=== PATIENT | female | born 1935 | race Caucasian/White ===

== ENCOUNTER → 2018-01-20 | Outpatient (CLI) | payer MEDICARE ==
--- NOTE | 2018-01-20 14:54 | XR ---
EXAMINATION TYPE: XR wrist complete 4 views LT, XR hand complete 3 views LT DATE OF EXAM: 01/20/2018 COMPARISON: NONE HISTORY: 81-year-old female pain after fall in July FINDINGS: There is widening of the scapholunate interval at 4.2 mm. Joint space narrowing with subchondral scle rosis at the radioscaphoid joint. The distal radioulnar joint is intact. Moderate degenerative joint space narrowing and marginal spurring at the first CMC joint. Osteopenia. Degenerative spurring scattered within the DIP and PIP joints especially the third PIP jaye int. No acute fracture or dislocation. IMPRESSION (wrist and hand): 1. Scapholunate ligament rupture with SLAC wrist. 2. 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 3. Additional scattered osteoarthritic changes within the fingers.
== END | disposition home or self-care (01) ==
LOC: RADXRMAIN 14:15
PROVIDERS: ATTEND Family Medicine
DX: M25.532 Pain in left wrist (principal)

== ENCOUNTER 2020-06-13 12:15 | Inpatient (IN) | payer MEDICARE ==
[2020-06-13] MEDS ORDERED: SODIUM CHLORIDE 0.9% 1,000 ML IV ONE (12:22)
[2020-06-13] MEDS ORDERED: KETOROLAC 15 MG/ML 1 ML VIAL IVP STA (12:23)
[2020-06-13 12:50] LABS: Glucose,Whole Blood 194 mg/dL (75-99)
--- NOTE | 2020-06-13 12:54 | ED ---
General Adult HPI - General Stated complaint: Back Pain Time Seen by Provider: 06/13/20 12:15 Source: patient, EMS, RN notes reviewed, old records reviewed Mode of arrival: EMS Limitations: no limitations - History of Present Illness Initial comments: This is an 84-year-old female who presents emergency department complaining of lower back pain. Patient states she fell 2 weeks ago and claims that she went to [facility] emergency department however when I called her they stated that she had never been there for lower back pain 2 weeks ago. Patient states her back pain is so bad now that she can't get out of bed and go to the bathroom and she is just swelling herself in bed. Family states he is so weak they can no longer take care of her and they are preparing to place her in an assisted living. Patient denies any fever chills or cough per patient denies any lighthe adedness or dizziness. Patient denies any chest pain palpitations difficulty breathing shortness of breath. Patient denies any abdominal pain patient denies nausea vomiting diarrhea. Patient denies any hip pain. Patient denies any extremity pain. Patient's only complaint is lower back pain and weakness. - Related Data Home Medications Medication Instructions Recorded Confirmed Atorvastatin [Lipitor] 40 mg PO DAILY 06/13/20 06/13/20 Carvedilol [Coreg] 12.5 mg PO BID 06/13/20 06/13/20 Lidocaine 5% Patch [Lidoderm] 1 patch TOPICAL DAILY 06/13/20 06/13/20 Losartan Potassium 100 mg PO DAILY 06/13/20 06/13/20 traMADol HCL 50 mg PO Q12H PRN 06/13/20 06/13/20 Allergies Allergy/AdvReac Type Severity Reaction Status Date / Time Sulfa (Sulfonamide Allergy Anaphylaxis Verified 04/25/15 19:07 Antibiotics) Review of Systems ROS Statement: Those systems with pertinent positive or pertinent negative responses have been documented in the HPI. ROS Other: All systems not noted in ROS Statement are negative. Past Medical History Past Medical History: Diabetes Mellitus, Hypertension Additional Past Medical History / Comment(s): DM in past no longer needs to take medication History of Any Multi-Drug Resistant Organisms: None Reported Past Surgical History: Section, Orthopedic Surgery Additional Past Surgical History / Comment(s): Left wrist Fx Past Anesthesia/Blood Transfusion Reactions: No Reported Reaction Past Psychological History: Anxiety Smoking Status: Former smoker Past Alcohol Use History: None Reported Past Drug Use History: None Reported General Exam - General Exam Comments Initial Comments: GENERAL: Patient is well-developed and well-nourished. Patient is nontoxic and well-hydrated and is in mild distress. ENT: Neck is soft and supple. No significant lymphadenopathy is noted. Oropharynx is clear. Moist mucous membranes. Neck has full range of motion without eliciting any pain. EYES: The sclera were anicteric and conjunctiva were pink and moist. Extraocular movements were intact and pupils were equal round and reactive to light. Eyelids were unremarkable. PULMONARY: Unlabored respirations. Good breath sounds bilaterally. No audible rales rhonchi or wheezing was noted. CARDIOVASCULAR: There is a regular rate and rhythm without any murmurs gallops or rubs. ABDOMEN: Soft and nontender with normal bowel sounds. SKIN: Skin is clear with no lesions or rashes and otherwise unremarkable. NEUROLOGIC: Patient is alert and oriented x3. Cranial nerves II through XII are grossly intact. Motor and sensory are also intact. Normal speech, volume and content. Symmetrical smile. MUSCULOSKELETAL: Normal extremities with adequate strength and full range of motion. Patient has tenderness of the lumbar spine around L3 as well as sacroiliac area. LYMPHATICS: No significant lymphadenopathy is noted PSYCHIATRIC: Normal psychiatric evaluation. Limitations: no limitations Course Vital Signs 06/13/20 06/13/20 06/13/20 12:18 13:33 14:00 Temperature 97.2 F L Pulse Rate 83 73 73 Respiratory 18 16 16 Rate Blood Pressure 110/62 100/57 119/82 O2 Sat by Pulse 95 95 95 Oximetry 06/13/20 15:00 Temperature Pulse Rate 71 Respiratory 16 Rate Blood Pressure 135/76 O2 Sat by Pulse 95 Oximetry Medical Decision Making - Medical Decision Making EKG shows sinus rhythm at 74 bpm. ME interval is 180 QRS is 148 QTC intervals 456 QTC is 506. Patient was diagnosed with pneumonia at 2:20 PM patient was started on antibiotics blood cultures are drawn and lactic acid was drawn. X-ray of the pelvis showed no acute abnormality. Lumbar sickle spine showed a T12 compression fracture that appears old. CT of the lumbosacral spine showed no acute fracture of the spine however it did show a possible pneumonia versus neoplasm in left lung. I spoke with Dr. Green he agreed to admit the patient admitted the patient wrote admitting orders. - Lab Data Result diagrams: 06/13/20 12:52 06/13/20 12:52 Lab Results 06/13/20 06/13/20 06/13/20 Range/Units 12:39 12:52 12:52 WBC 12.6 H (3.8-10.6) k/uL RBC 4.18 (3.80-5.40) m/uL Hgb 13.7 (11.4-16.0) gm/dL Hct 40.4 (34.0-46.0) % MCV 96.7 (80.0-100.0) fL MCH 32.7 (25.0-35.0) pg MCHC 33.8 (31.0-37.0) g/dL RDW 13.0 (11.5-15.5) % Plt Count 206 (150-450) k/uL MPV 7.1 Neutrophils % 82 % Lymphocytes % 12 % Monocytes % 5 % Eosinophils % 1 % Basophils % 0 % Neutrophils # 10.3 H (1.3-7.7) k/uL Lymphocytes # 1.5 (1.0-4.8) k/uL Monocytes # 0.6 (0-1.0) k/uL Eosinophils # 0.2 (0-0.7) k/uL Basophils # 0.0 (0-0.2) k/uL Sodium (137-145) mmol/L Potassium (3.5-5.1) mmol/L Chloride (98-107) mmol/L Carbon Dioxide (22-30) mmol/L Anion Gap mmol/L BUN (7-17) mg/dL Creatinine (0.52-1.04) mg/dL Est GFR (CKD-EPI)AfAm (>60 ml/min/1.73 sqM) Est GFR (CKD-EPI)NonAf (>60 ml/min/1.73 sqM) Glucose (74-99) mg/dL POC Glucose (mg/dL) 194 H (75-99) mg/dL POC Glu Crayon Grader ID Brandan Arrieta Calcium (8.4-10.2) mg/dL Total Bilirubin (0.2-1.3) mg/dL AST (14-36) U/L ALT (4-34) U/L Alkaline Phosphatase (38-126) U/L Total Protein (6.3-8.2) g/dL Albumin (3.5-5.0) g/dL Urine Color Yellow Urine Appearance Clear (Clear) Urine pH 6.0 (5.0-8.0) Ur Specific Mobile 1.021 (1.001-1.035) Urine Protein Trace H (Negative) Urine Glucose (UA) 1+ H (Negative) Urine Ketones 1+ H (Negative) Urine Blood Negative (Negative) Urine Nitrite Negative (Negative) Urine Bilirubin Negative (Negative) Urine Urobilinogen <2.0 (<2.0) mg/dL Ur Leukocyte Esterase Negative (Negative) 06/13/20 Range/Units 12:52 WBC (3.8-10.6) k/uL RBC (3.80-5.40) m/uL Hgb (11.4-16.0) gm/dL Hct (34.0-46.0) % MCV (80.0-100.0) fL MCH (25.0-35.0) pg MCHC (31.0-37.0) g/dL RDW (11.5-15.5) % Plt Count (150-450) k/uL MPV Neutrophils % % Lymphocytes % % Monocytes % % Eosinophils % % Basophils % % Neutrophils # (1.3-7.7) k/uL Lymphocytes # (1.0-4.8) k/uL Monocytes # (0-1.0) k/uL Eosinophils # (0-0.7) k/uL Basophils # (0-0.2) k/uL Sodium 132 L (137-145) mmol/L Potassium 3.9 (3.5-5.1) mmol/L Chloride 99 (98-107) mmol/L Carbon Dioxide 28 (22-30) mmol/L Anion Gap 5 mmol/L BUN 32 H (7-17) mg/dL Creatinine 0.77 (0.52-1.04) mg/dL Est GFR (CKD-EPI)AfAm 81 (>60 ml/min/1.73 sqM) Est GFR (CKD-EPI)NonAf 71 (>60 ml/min/1.73 sqM) Glucose 203 H (74-99) mg/dL POC Glucose (mg/dL) (75-99) mg/dL POC Glu Crayon Grader ID Calcium 9.0 (8.4-10.2) mg/dL Total Bilirubin 1.5 H (0.2-1.3) mg/dL AST 38 H (14-36) U/L ALT 32 (4-34) U/L Alkaline Phosphatase 96 (38-126) U/L Total Protein 6.5 (6.3-8.2) g/dL Albumin 3.4 L (3.5-5.0) g/dL Urine Color Urine Appearance (Clear) Urine pH (5.0-8.0) Ur Specific Mobile (1.001-1.035) Urine Protein (Negative) Urine Glucose (UA) (Negative) Urine Ketones (Negative) Urine Blood (Negative) Urine Nitrite (Negative) Urine Bilirubin (Negative) Urine Urobilinogen (<2.0) mg/dL Ur Leukocyte Esterase (Negative) Disposition Clinical Impression: Thoracic back pain, Pneumonia Disposition: ADMITTED IP TO THIS HOSP Referrals: William Green MD [Primary Care Provider] - 1-2 days Time of Disposition: 15:08
[2020-06-13 13:02] LABS: Basophils % (A) 0 %; Eosinophils # (A) 0.2 k/uL (0-0.7); Eosinophils % (A) 1 %; HCT 40.4 % (34.0-46.0); HGB 13.7 gm/dL (11.4-16.0); Lymphocytes # (A) 1.5 k/uL (1.0-4.8); Lymphocytes % (A) 12 %; MCH 32.7 pg (25.0-35.0); MCHC 33.8 g/dL (31.0-37.0); MCV 96.7 fL (80.0-100.0); Mean Platelet Volume 7.1; Monocytes # (A) 0.6 k/uL (0-1.0); Monocytes % (A) 5 %; Neutrophils # (A) 10.3 k/uL (1.3-7.7); Neutrophils % (A) 82 %; Platelet Count 206 k/uL (150-450); RBC 4.18 m/uL (3.80-5.40); WBC 12.6 k/uL (3.8-10.6)
[2020-06-13 13:03] LABS: Appearance,Urine Clear (Clear); Bilirubin,Urine Negative (Negative); Blood,Urine Negative (Negative); Color,Urine Yellow; Glucose,Urine (UA) 1+ (Negative); Ketones,Urine 1+ (Negative); Leukocyte Esterase,Urine Negative (Negative); Nitrite,Urine Negative (Negative); Protein,Urine Trace (Negative); Specific Gravity,Urine 1.021 (1.001-1.035); Urobilinogen,Urine <2.0 mg/dL (<2.0)
--- NOTE | 2020-06-13 13:12 | XR ---
EXAMINATION TYPE: XR pelvis AP view DATE OF EXAM: 06/13/2020 CLINICAL HISTORY: Pelvic pain after trauma. TECHNIQUE: A single AP view of the pelvis is obtained. COMPARISON: None. FINDINGS: There is no acute fracture/dislocation evident in the pelvis. [id number] axial joint space loss both hips right greater than left with mild acetabular spurring. Some asymmetric narrowin g of left sacroiliac joint is felt present. Pubic symphysis is maintained. Overlying vascular calcifi cation is present. IMPRESSION: There is no acute fracture or dislocation in the pelvis.
--- NOTE | 2020-06-13 13:14 | XR ---
EXAMINATION TYPE: XR lumbar spine 2 or 3V DATE OF EXAM: 06/13/2020 CLINICAL HISTORY: Low back pain. TECHNIQUE: Frontal and lateral images of the lumbar spine are obtained. COMPARISON: None FINDINGS: Osseous structures are demineralized which is noted to lower radiographic sensitivity. The re are 5 lumbar type vertebral bodies identified. The lumbar spine shows satisfactory alignment with out evidence of acute fracture or dislocation. Mild to moderate height loss involving T12 vertebra pr esumed chronic. Vertebral bodies and disc space heights relatively well maintained in the lumbar spin e. Atherosclerotic change of aorta extends into the iliac branch vessels. Facet arthropathy lower lum bar spine is present. Focal ectasia up to 2.9 cm AP diameter distal abdominal aorta noted. IMPRESSION: As above.
[2020-06-13 13:18] LABS: Albumin 3.4 g/dL (3.5-5.0); Potassium 3.9 mmol/L (3.5-5.1); Total Bilirubin 1.5 mg/dL (0.2-1.3); Total Protein 6.5 g/dL (6.3-8.2)
--- NOTE | 2020-06-13 14:25 | CT ---
EXAMINATION TYPE: CT thoracic spine wo con DATE OF EXAM: 06/13/2020 COMPARISON: Lumbar spine x-ray earlier today. HISTORY: Back pain from fall CT DLP: 628.1 mGycm Automated exposure control for dose reduction was used. FINDINGS: Osseous structures redemonstrated demineralized. There is exaggerated thoracic kyphosis. Mild height loss involving T12 vertebra redemonstrated. There is additional mild to moderate height loss involvin g the T10 and T8 vertebra and mild height loss involving the T7 vertebra. No linear lucency to confir m acute fracture is clearly identified at any level. Mild posterior retropulsion involving superior T 12 vertebral sagittal image 32 measuring under 3 mm. There is additional posterior spur efface the an terior thecal sac at T7-T8 level sagittal image 32. There is bilateral moderate underlying emphysematous change. Reticulonodular infiltrates posterior ri ght upper lung axial image 29 are noted. There is additional more prominent nodular consolidations in the posterior aspect left upper lobe. For reference of 1.3 x 1.2 cm area noted axial image 27. Corre late clinically for acute infectious process otherwise neoplasm needs to be considered. There is cardiomegaly with dual lead pacemaker. There is severe coronary artery calcification. There is aneurysmal and atherosclerotic descending thoracic aorta measuring up to 3.8 cm in size axial imag e 55. There is nonspecific low dense left greater than right and size adrenal masses. For reference there i s 2.3 x 1.4 cm left adrenal mass axial image 83 with Hounsfield units averaging 17. IMPRESSION: 1. No acute fracture is clearly evident. Demineralization with several mild/moderate compression type fracture deformities in the mid to lower thoracic spine confirmed. 2. Moderate atherosclerotic change with multifocal aneurysmal descending aorta. 3. Suspicious nodular opacities posterior aspect left greater than right upper lobes, correlate for a cute infectious process, neoplasm cannot be excluded particularly left upper lobe. Follow-up is advis ed. Background moderate underlying emphysematous change. Nonspecific adrenal masses noted.
[2020-06-13] MEDS ORDERED: cefTRIAXone IN SWFI 1,000 MG/10 ML SYRINGE IVP STA (14:39)
[2020-06-13] MEDS ORDERED: PNEUMONIA PROTOCOL UTILIZED 1 EACH MISC PO PRN (15:09)
[2020-06-13] MEDS ORDERED: AZITHROMYCIN 500 MG in SODIUM CHLORIDE 0.9% 250 ML IVPB STA (15:09)
--- NOTE | 2020-06-14 07:59 | XR ---
EXAMINATION TYPE: XR chest 1V DATE OF EXAM: 06/14/2020 COMPARISON: 04/25/2015 INDICATION: Pneumonia TECHNIQUE: Single frontal view of the chest is obtained. FINDINGS: The heart size is mildly prominent. The pulmonary vasculature is normal. No focal consolidation is evident. No suspicious infiltrates. Pacemaker overlies left chest. Chronic rotator cuff tear changes appear to be present at the shoulders bilaterally. IMPRESSION: 1. No acute pulmonary process. 2. Mild cardiomegaly
[2020-06-14] MEDS: AZITHROMYCIN 500 MG TAB PO SCH (10:43)
[2020-06-14] MEDS ORDERED: traMADol 50 MG TAB PO PRN (14:30)
[2020-06-14] MEDS ORDERED: RX INFO: IV CONTRAST WAS GIVEN 1 EACH MISC MISCELLANE PRN (14:36)
[2020-06-14] MEDS: LIDOCAINE 5% PATCH TOPICAL SCH (15:26)
[2020-06-14] MEDS: carvediloL 12.5 MG TAB PO SCH (15:28)
[2020-06-14] MEDS: LOSARTAN 50 MG TAB PO SCH (15:30)
--- NOTE | 2020-06-14 15:32 | HP ---
HISTORY AND PHYSICAL The patient was unable to get out of bed at home with dementia, delirium, low back pain after she had multiple thoracic fractures in the past for which she was admitted. She can no longer take care of herself. They are trying to get her into assisted living. Denies having any chest pain, palpitations, difficulty breathing, nausea, vomiting, generalized weakness, unable to ambulate. HOME MEDICINES: 1. Lipitor 40 daily. 2. Coreg 12.5 b.i.d. 3. Lidocaine patch daily. 4. Losartan 100 daily. 5. Tramadol 50 q.12. ALLERGIES: SULFA. REVIEW OF SYSTEMS: Fourteen-point review of systems otherwise generalized weakness and fatigue. Otherwise negative x14. PAST MEDICAL HISTORY: Diabetes mellitus, hypertension. PAST SURGICAL HISTORY: , orthopedic surgery. PHYSICAL EXAMINATION: She is well-developed, well-nourished, well-hydrated. HEENT: Normocephalic, atraumatic. Pupils equal, round, reactive. LUNGS: Are rales at the base. GI: Soft. SKIN: Warm and dry. NEUROLOGIC: Cranial nerves are intact. MUSCULOSKELETAL: Full range of motion. PSYCH: Normal eval. Temperature 97.2, pulse 73 to 83, respiratory rate 18 to 20, blood pressure 100s over 70s. EKG sinus rhythm. Pelvis x-ray is negative. Lumbar x-ray, T12 compression fracture. A CT of the lumbar spine did show possible pneumonia versus neoplasm of the left lung. She continues to smoke. She has smoked for many years, refused to quit. Sodium 132, potassium 3.9, BUN 32, creatinine 0.77. UA is negative. ASSESSMENT: 1. Thoracic back pain. 2. Pneumonia. 3. Rule out lung cancers. 4. Nicotine addiction. 5. Chronic obstructive pulmonary disease. 6. Hypertension. 7. Coronary artery disease. 8. She has also had a descending aortic aneurysm. Prognosis guarded. Will repeat CT scan of the chest with contrast. Please see further orders. MMODL / IJN: [id number] /
[2020-06-14] MEDS: ATORVASTATIN 40 MG TAB PO SCH (17:01)
--- NOTE | 2020-06-14 21:53 | CT ---
EXAMINATION TYPE: CT chest w con DATE OF EXAM: 06/14/2020 COMPARISON: None HISTORY: CAP vs Mass CT DLP: 293.10 mGycm Automated exposure control for dose reduction was used. CONTRAST: Performed with IV Contrast, patient injected with 100 mL of Isovue 300. Images were obtained from the thoracic inlet to the diaphragm with IV contrast. There is some patchy interstitial density in both lungs. There is 1.5 cm irregular infiltrate on the posterior aspect of the right upper lobe adjacent to the major fissure. There is aneurysm of the descending thoracic aorta with thrombus on the posterior wall. Thrombus khushi ures up to 1 cm. Aneurysm measures up to 4.2 cm. There is no mediastinal adenopathy. There are no hilar masses. There is left axillary pacemaker. Uppe r abdominal soft tissues are intact. There is compression deformity of T12 T10 and T8 and T7 vertebra up to 35%. IMPRESSION: Aneurysm of the descending thoracic aorta without evidence of leakage. Interstitial pulmonary density consistent with mild fibrosis. Small infiltrate posterior aspect left upper lobe is likely inflammat ory. Osteoporotic type multiple compression fractures of the thoracic spine.
[2020-06-15 07:11] LABS: Basophils # (A) 0.1 k/uL (0-0.2); Basophils % (A) 1 %; Eosinophils # (A) 0.2 k/uL (0-0.7); Eosinophils % (A) 2 %; HCT 37.6 % (34.0-46.0); HGB 12.6 gm/dL (11.4-16.0); Lymphocytes # (A) 2.2 k/uL (1.0-4.8); Lymphocytes % (A) 24 %; MCH 32.6 pg (25.0-35.0); MCHC 33.4 g/dL (31.0-37.0); MCV 97.6 fL (80.0-100.0); Mean Platelet Volume 7.2; Monocytes # (A) 0.6 k/uL (0-1.0); Monocytes % (A) 6 %; Neutrophils # (A) 6.1 k/uL (1.3-7.7); Neutrophils % (A) 66 %; Platelet Count 193 k/uL (150-450); RBC 3.86 m/uL (3.80-5.40); RDW 12.9 % (11.5-15.5); WBC 9.3 k/uL (3.8-10.6)
[2020-06-15] MEDS: AZITHROMYCIN 500 MG TAB PO SCH (07:44)
[2020-06-15] MEDS: ATORVASTATIN 40 MG TAB PO SCH (07:44)
[2020-06-15] MEDS: LOSARTAN 50 MG TAB PO SCH (07:44)
[2020-06-15] MEDS: carvediloL 12.5 MG TAB PO SCH ×2 (07:44→17:09)
--- NOTE | 2020-06-15 09:58 | PN ---
PROGRESS NOTE An 84-year-old white female who is admitted with possible pneumonia versus lung mass. CT scan of the chest did show multiple osteoporotic fracture of thoracic spine, aneurysm of the descending aorta without leakage, fibrosis in the lungs, small infiltrate, left upper lobe pneumonia. The patient's main problem is difficulty with ambulation. We will get physical therapy to work with the patient. Await for Pulmonary recommendations. Will continue on Rocephin, Azithromycin. Temp 98.4, blood pressure is 120s-170's over 60s-70s, pulse 75 to 77 respiratory 16 to 18, O2 95% on room air. Lungs transmitted upper sounds. Cardiovascular S1-S2. Hematology negative Homans'. Psych fair mood and affect. ASSESSMENT: 1. Community-acquired pneumonia. 2. Chronic obstructive pulmonary disease. 3. Pulmonary fibrosis. 4. Acute hypoxemic respiratory distress. 5. Multiple thoracic fractures. 6. Ascending thoracic aneurysm. Appears to be stable. Continue with antibiotics and steroids. Await for Pulmonary recommendations. Possible discharge home in the next 24 hours if the patient continues to improve. MMODL / IJN: [id number] /
[2020-06-15] MEDS: LIDOCAINE 5% PATCH TOPICAL SCH (17:08)
[2020-06-15 20:33] LABS: African American GFR (CKD) 47.7 (60.0-200.0); Albumin 3.6 g/dL (3.80-4.90); Albumin/Globulin Ratio 1.64 (1.60-3.17); Anion Gap 10.8 mmol/L (4.00-12.00); BUN/Creat Ratio 22.5 Ratio (12.00-20.00); Carbon Dioxide 26.2 mmol/L (21.6-31.8); Globulin 2.2 g/dL (1.6-3.3); Non-African American GFR(CKD) 41.2 (60.0-200.0); Potassium 3.4 mmol/L (3.5-5.5); Total Bilirubin 0.7 mg/dL (0.2-1.2); Total Protein 5.8 g/dL (6.2-8.2)
[2020-06-15 21:19] VITALS: RESP 18
[2020-06-16 05:12] VITALS: BP 126/78; PULSE 81; TEMP 98.3
[2020-06-16] MEDS: LOSARTAN 50 MG TAB PO SCH (07:59)
[2020-06-16] MEDS: ATORVASTATIN 40 MG TAB PO SCH (07:59)
[2020-06-16] MEDS: carvediloL 12.5 MG TAB PO SCH (07:59)
[2020-06-16] MEDS: AZITHROMYCIN 500 MG TAB PO SCH (07:59)
[2020-06-16] MEDS ORDERED: LINAGLIPTIN 5 MG TABLET PO SCH (09:30)
--- NOTE | 2020-06-16 13:59 | DS ---
DISCHARGE SUMMARY DISCHARGED MEDICATIONS: Augmentin 875 one b.i.d. for 5 days, Zithromax 500 mg for 5 days, losartan 100 mg daily, Coreg 12.5 b.i.d., Lidocaine patch 5% topically daily, Lipitor 40 mg daily, tramadol 50 q.12 hours p.r.n., Tradjenta 5 mg daily for diabetes. HOSPITAL COURSE: This is a white female admitted with community-acquired pneumonia and generalized weakness and fatigue with metabolic encephalopathy. Patient was unable to ambulate and get out of bed for 2-3 days. She is rehydrated. Prerenal renal insufficiency and tubular necrosis treated with IV fluids, IV antibiotics. Patient was transitioned to oral medicine, started on Tradjenta for diabetes 5 mg daily. Continue azithromycin, Augmentin for 5 more days on discharge. Condition stable. Prognosis guarded. Diet as tolerated. Condition stable. MMHANNAHL / CEDRICKN: [id number] /
[2020-06-16] MEDS ORDERED: AMOXIC-POT CLAV 500-125 MG 1 EACH TAB PO SCH (21:00)
--- NOTE | 2020-06-22 17:39 | P.CNPUL ---
History of Present Illness Consult date: 06/15/20 Reason for consult: dyspnea, cough Chief complaint: COPD History of present illness: This is a 84-year-old female came into the hospital with lower back pain, patient had a fall about 2 weeks ago, patient patient felt that she was evaluated at [facility], however there are none of the records available, it appears that patient was feeling weak likely will placement into ECF, denies any chest pain some short of breath on activity and exertion is present, patient significant past history is for dyslipidemia hypertension hypertensive cardiovascular disease and degenerative joint disease osteoarthritis, patient had a pelvic x-ray which is negative for fracture the thoracolumbar spine significant for multiple compression fracture, infiltrates are noted which are nodular left more than the right side bilaterally in the lungs suspected to have ongoing pneumonia patient has been started on antibiotic s and admitted to the hospital, computed tomography scan of the chest revealed aneurysm of descending thoracic aorta, without any evidence of leakage, mild fibrosis noted, infiltrates are left upper lobe noted likely pneumonia Review of Systems All systems: negative Past Medical History Past Medical History: COPD, Dementia, Diabetes Mellitus, Eye Disorder, Hyperlipidemia, Hypertension, Pneumonia Additional Past Medical History / Comment(s): Pt fell about 2 weeks ago and has had back pain since and not moving around, diabetes-no longer on any medications, cataract/laterallity unknown, occasional incontinence. History of Any Multi-Drug Resistant Organisms: None Reported Past Surgical History: Section, Orthopedic Surgery, Pacemaker Additional Past Surgical History / Comment(s): Cataract removal/laterallity unknown. Past Anesthesia/Blood Transfusion Reactions: No Reported Reaction Type of Cardiac Device: Permanent Pacemaker Device Placement Date:: June 2019 Smoking Status: Former smoker - Past Family History Father History Unknown: Yes Additional Family Medical History / Comment(s): Jacqueline states she does not know hi story Mother History Unknown: Yes Additional Family Medical History / Comment(s): Jacqueline states she does not know history. Medications and Allergies Home Medications Medication Instructions Recorded Confirmed Type Atorvastatin [Lipitor] 40 mg PO DAILY 06/13/20 06/13/20 History Carvedilol [Coreg] 12.5 mg PO BID 06/13/20 06/13/20 History Lidocaine 5% Patch [Lidoderm 5% 1 patch TOPICAL DAILY 06/13/20 06/13/20 History Patch] Losartan Potassium 100 mg PO DAILY 06/13/20 06/13/20 History traMADol HCL 50 mg PO Q12H PRN 06/13/20 06/13/20 History Amoxic-Pot Clav 875-125Mg 1 each PO Q12HR 5 Days #10 tab 06/16/20 Rx [Augmentin 875-125] Azithromycin [Zithromax] 500 mg PO DAILY 5 Days #5 tab 06/16/20 Rx Linagliptin [Tradjenta] 5 mg PO DAILY 30 Days #30 tablet 06/16/20 Rx Allergies Allergy/AdvReac Type Severity Reaction Status Date / Time Sulfa (Sulfonamide Allergy Anaphylaxis Verified 04/25/15 19:07 Antibiotics) Physical Exam Vitals: Vital Signs Temp Pulse Resp BP Pulse Ox 06/15/20 11:00 98 F 78 20 148/82 96 06/15/20 05:00 98.4 F 75 16 174/77 95 06/14/20 21:46 97.6 F 77 18 128/69 95 Intake and Output 06/15/20 06/15/20 06/15/20 06:59 14:59 22:59 Intake Total 300 Output Total 600 400 Balance -300 -400 Intake: Oral 300 Output: Urine 600 400 Uretheral (Diane) 600 400 Other: Voiding Method Indwelling Catheter - Constitutional General appearance: disheveled - EENT Eyes: PERRLA Ears: bilateral: normal - Neck Carotids: bilateral: upstroke normal - Respiratory Respiratory: bilateral: CTA - Cardiovascular Rhythm: regular Heart sounds: normal: S1, S2 - Gastrointestinal General gastrointestinal: soft - Neurologic Neurologic: CNII-XII intact - Musculoskeletal Musculoskeletal: generalized weakness - Psychiatric Psychiatric: appropriate affect Results - Laboratory Findings CBC and BMP: 06/15/20 06:40 06/15/20 06:40 Abnormal lab findings: Abnormal Labs 06/13/20 06/13/20 06/13/20 12:39 12:52 12:52 WBC 12.6 H Neutrophils # 10.3 H Sodium BUN Glucose POC Glucose (mg/dL) 194 H Total Bilirubin AST Albumin Urine Protein Trace H Urine Glucose (UA) 1+ H Urine Ketones 1+ H 06/13/20 12:52 WBC Neutrophils # Sodium 132 L BUN 32 H Glucose 203 H POC Glucose (mg/dL) Total Bilirubin 1.5 H AST 38 H Albumin 3.4 L Urine Protein Urine Glucose (UA) Urine Ketones - Diagnostic Findings Chest x-ray: report reviewed, image reviewed CT scan - chest: report reviewed, image reviewed Assessment and Plan Assessment: Left upper lobe pneumonia likely community-acquired 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
--- NOTE | 2020-06-22 17:42 | P.PN ---
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 Frequent fall failure to thrive and take care of himself Hypertension hypertensive cardiovascular disease Dementia and is I am's disease 06/16/2020, patient seen eval examined responding well to the antibiotics denies any cough or sputum production on room air saturation is in mid 90s, tolerating antibiotics well This is a 84-year-old female came into the hospital with lower back pain, patient had a fall about 2 weeks ago, patient patient felt that she was evaluated at [facility] [place], however there are none of the records available, it appears that patient was feeling weak likely will placement into ECF, denies any chest pain some short of breath on activity and exertion is present, patient significant past history is for dyslipidemia hypertension hypertensive cardiovascular disease and degenerative joint disease osteoarthritis, patient had a pelvic x-ray which is negative for fracture the thoracolumbar spine significant for multiple compression fracture, infiltrates are noted which are nodular left more than the right side bilaterally in the lungs suspected to have ongoing pneumonia patient has been started on antibiotics and admitted to the hospital, computed tomography scan of the chest revealed aneurysm of descending thoracic aorta, without any evidence of leakage, mild fibrosis noted, infiltrates are left upper lobe noted likely pneumonia Objective - Vital Signs Vital signs: Vital Signs Temp 98.3 F 06/16/20 04:05 Pulse 81 06/16/20 04:05 Resp 18 06/16/20 04:05 BP 126/78 06/16/20 04:05 Pulse Ox 94 L 06/16/20 04:05 Intake & Output 06/15/20 06/16/20 06/16/20 18:59 06:59 18:59 Intake Total 450 Output Total 800 400 Balance -350 -400 Intake: Intake, IV Titration 50 Amount cefTRIAXone 2 gm In 50 Sodium Chloride 0.9% 50 ml @ 100 mls/hr IVPB Q24H [facility] Rx#:[id number] Oral 400 Output: Urine 800 400 Uretheral (Diane) 800 Other: Voiding Method Indwelling Catheter Indwelling Catheter Indwelling Catheter # Bowel Movements 1 - Labs CBC & Chem 7: 06/15/20 06:40 06/15/20 06:40 Labs: Abnormal Lab Results - Last 24 Hours (Table) 06/15/20 06/15/20 Range/Units 06:40 06:40 Potassium 3.4 L (3.5-5.5) mmol/L Est GFR (CKD-EPI)AfAm 47.7 L (60.0-200.0) Est GFR (CKD-EPI)NonAf 41.2 L (60.0-200.0) BUN/Creatinine Ratio 22.50 H (12.00-20.00) Ratio Hemoglobin A1c 8.0 H (4.0-6.0) % Total Protein 5.8 L (6.2-8.2) g/dL Albumin 3.60 L (3.80-4.90) g/dL Microbiology - Last 24 Hours (Table) 06/13/20 15:03 Blood Culture - Preliminary Blood No Growth after 48 hours 06/13/20 14:45 Blood Culture - Preliminary Blood No Growth after 48 hours Assessment and Plan Assessment: Left upper lobe pneumonia likely community-acquired 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
== END 2020-06-16 14:46 | disposition home health service (06) | DRG 193 ==
LOC: EC 12:15 → 6NMEDSUR 15:09
PROVIDERS: ADMIT Family Medicine; ATTEND Family Medicine
DX: J18.9 Pneumonia, unspecified organism (principal); N17.0 Acute kidney failure with tubular necrosis; G93.41 Metabolic encephalopathy; J44.0 Chronic obstructive pulmonary disease with (acute) lower respiratory infection; M80.08XA Age-related osteoporosis with current pathological fracture, vertebra(e), initial encounter for fracture; I11.9 Hypertensive heart disease without heart failure; I25.10 Atherosclerotic heart disease of native coronary artery without angina pectoris; J84.10 Pulmonary fibrosis, unspecified; R29.6 Repeated falls; R62.7 Adult failure to thrive; F17.200 Nicotine dependence, unspecified, uncomplicated; F03.90 Unspecified dementia, unspecified severity, without behavioral disturbance, psychotic disturbance, mood disturbance, and anxiety; E78.5 Hyperlipidemia, unspecified; E11.9 Type 2 diabetes mellitus without complications; I71.2 Thoracic aortic aneurysm, without rupture; M47.9 Spondylosis, unspecified; F41.9 Anxiety disorder, unspecified; Z88.2 Allergy status to sulfonamides; Z79.899 Other long term (current) drug therapy; Z79.84 Long term (current) use of oral hypoglycemic drugs; Z98.891 History of uterine scar from previous surgery
CPT/HCPCS: 36415; 51702; 71045; 71260; 72100; 72128; 72170; 80053; 81003; 83036; 83605; 85025; 87040; 93005; 96361; 96374; 96375; 99285

== ENCOUNTER → 2020-08-24 | Outpatient (CLI) | payer MEDICARE ==
--- NOTE | 2020-08-24 17:20 | XR ---
EXAMINATION TYPE: XR wrist complete LT DATE OF EXAM: 08/24/2020 CLINICAL HISTORY: Fall injury with pain. TECHNIQUE: Frontal, lateral and oblique images of the left wrist are obtained. 4 view scaphoid view is performed. COMPARISON: Left wrist x-ray January 20, 2018 FINDINGS: Osseous structures remain demineralized. Persistent but stable abnormal widening scapholuna te joint space. Marked narrowing of the radiocarpal joint space with joint space sclerosis redemonstr ated. Mild to moderate triscaphe joint space narrowing. Mild to moderate narrowing and spurring at ba se of first metacarpal. Overlying soft tissue is unremarkable. No acute fracture or dislocation is se en. IMPRESSION: As above. No significant change from prior.
== END ==
LOC: RADXRMAIN 16:36
PROVIDERS: ATTEND Family Medicine
DX: M25.532 Pain in left wrist (principal)

== ENCOUNTER 2020-11-03 09:24 | Emergency (ER) | payer MEDICARE ==
[2020-11-03 09:33] VITALS: RESP 18
--- NOTE | 2020-11-03 09:43 | ED ---
General Adult HPI - General Chief complaint: Fall Stated complaint: Fall/head injury Time Seen by Provider: 11/03/20 09:29 Source: patient, EMS Mode of arrival: EMS - History of Present Illness Initial comments: Dictation was produced using PlaySay dictation software. please excuse any grammatical, word or spelling errors. This patient was cared for during a federal and state declared state of emergency secondary to Covid 19 Chief Complaint: 85-year-old female presents after fall and head injury History of Present Illness: 85-year-old female she has past medical history of dementia she is brought in by EMS. EMS reports the patient suffered a fall today struck her head. Patient's history of dementia Provide history of present illness. She denies any neck pain. She denies any pain whatsoever. Patient does not take any anticoagulation medications. The ROS documented in this emergency department record has been reviewed and confirmed by me. Those systems with pertinent positive or negative responses have been documented in the HPI. All other systems are other negative and/or noncontributory. PHYSICAL EXAM: General Impression: Alert and oriented x2/4, not in acute distress, pleasantly demented HEENT: Small hematoma right forehead, extra-ocular movements intact, pupils equal and reactive to light bilaterally, mucous membranes moist. Cardiovascular: Heart regular rate and rhythm Chest: Able to complete full sentences, no retractions, no tachypnea Abdomen: abdomen soft, non-tender, non-distended, no organomegaly Musculoskeletal: Pulses present and equal in all extremities, no peripheral edema Motor: no focal deficits noted Neurological: CN II-XII grossly intact, no focal motor or sensory deficits noted Skin: Intact with no visualized rashes Psych: Normal affect and mood ED course: 85 yo female presents after fall and head injury. Vital Signs upon arrival are within acceptable limits. Patient's well-appearing at bedside. Computed tomography scan of the head and C-spine shows no acute processes. Patient will be discharged. - Related Data Home Medications Medication Instructions Recorded Confirmed Atorvastatin [Lipitor] 40 mg PO DAILY 06/13/20 11/03/20 Carvedilol [Coreg] 12.5 mg PO BID 06/13/20 11/03/20 Losartan Potassium 100 mg PO DAILY 06/13/20 11/03/20 Amoxicillin 500 mg PO TID 11/03/20 11/03/20 Aspirin EC [Ecotrin Low Dose] 81 mg PO DAILY 11/03/20 11/03/20 QUEtiapine FUMARATE [SEROquel] 25 mg PO HS 11/03/20 11/03/20 Allergies Allergy/AdvReac Type Severity Reaction Status Date / Time Sulfa (Sulfonamide Allergy Anaphylaxis Verified 11/03/20 10:49 Antibiotics) Review of Systems ROS Statement: Those systems with pertinent positive or pertinent negative responses have been documented in the HPI. ROS Other: All systems not noted in ROS Statement are negative. Past Medical History Past Medical History: COPD, Dementia, Diabetes Mellitus, Eye Disorder, Hyperlipidemia, Hypertension, Pneumonia Additional Past Medical History / Comment(s): Pt fell about 2 weeks ago and has had back pain since and not moving around, diabetes-no longer on any medications, cataract/laterallity unknown, occasional incontinence. History of Any Multi-Drug Resistant Organisms: None Reported Past Surgical History: Section, Orthopedic Surgery, Pacemaker Additional Past Surgical History / Comment(s): Cataract removal/laterallity unknown. Past Anesthesia/Blood Transfusion Reactions: No Reported Reaction Type of Cardiac Device: Permanent Pacemaker Device Placement Date:: June 2019 Past Psychological History: Anxiety, Depression Smoking Status: Former smoker Past Alcohol Use History: None Reported Past Drug Use History: None Reported - Past Family History Father History Unknown: Yes Additional Family Medical History / Comment(s): Jacqueline states she does not know history Mother History Unknown: Yes Additional Family Medical History / Comment(s): Jacqueline states she does not know history. Course Vital Signs 11/03/20 09:29 Temperature 97.7 F Pulse Rate 70 Respiratory 18 Rate Blood Pressure 147/85 O2 Sat by Pulse 95 Oximetry Disposition Clinical Impression: Fall, Head contusion Disposition: HOME SELF-CARE Condition: Good Instructions (If sedation given, give patient instructions): Fall Prevention for Older Adults (ED) Is patient prescribed a controlled substance at d/c from ED?: No Referrals: William Green MD [Primary Care Provider] - 1-2 days
--- NOTE | 2020-11-03 10:24 | CT ---
EXAMINATION TYPE: CT brain sridevi lainez DATE OF EXAM: 11/03/2020 COMPARISON: None HISTORY: fall, head injury CT DLP: 1287.[address] of the brain was performed. The ventricles, basal cisterns and sulci overlying the cerebral convexities demonstrate mild to moder ate enlargement. There is no evidence for intracranial hemorrhage or sulcal effacement. There is decreased attenuatio n about the periventricular white matter and deep white matter of both cerebral hemispheres, compatib le with chronic small vessel ischemia. No mass effects are seen. If symptoms persist consider MRI. Osseous calvarium is intact. Chronic sphenoid sinusitis. IMPRESSION: 1. Age related atrophic and chronic small vessel ischemic change without acute intracranial process seen at this time. CT Cervical Spine: Unenhanced CT of the cervical spine was performed with bone and soft tissue window settings submitted . Coronal and sagittal reconstruction is obtained. There is normal alignment and prevertebral soft tissues. No evidence for acute cervical fracture . L eft-sided C4 perineural cyst. Scattered degenerative disc disease and spondylosis. Biapical scarring. IMPRESSION: 1. No evidence for acute fracture or subluxation of the cervical spine.
[2020-11-03 12:17] VITALS: BP 123/85; PULSE 63; TEMP 98.1
== END 2020-11-03 12:03 | disposition home or self-care (01) ==
LOC: EC 09:24
DX: S00.83XA Contusion of other part of head, initial encounter (principal); I10 Essential (primary) hypertension; E78.5 Hyperlipidemia, unspecified; F03.90 Unspecified dementia, unspecified severity, without behavioral disturbance, psychotic disturbance, mood disturbance, and anxiety; W19.XXXA Unspecified fall, initial encounter; Z88.2 Allergy status to sulfonamides; Z79.899 Other long term (current) drug therapy; Z87.891 Personal history of nicotine dependence; Z95.0 Presence of cardiac pacemaker
CPT/HCPCS: 70450; 72125; 93005; 99284

== ENCOUNTER 2021-01-15 11:11 | Emergency (ER) | payer MEDICARE ==
--- NOTE | 2021-01-15 11:54 | ED ---
Altered Mental Status HPI - General Chief Complaint: Altered Mental Status Stated Complaint: Altered,COVID + Time Seen by Provider: 01/15/21 11:38 Source: patient, EMS Mode of arrival: EMS Limitations: no limitations - History of Present Illness Initial Comments: 85-year-old female presents to the emergency Department for complaints of generalized weakness, agitation. Patient sent in as she was recently tested positive for Covid. Patient's reportedly had a pulse ox 89 no room air here was 96 patient herself has no complaints denies chest pain shortness breath headache dizziness. She states she is not sick. Patient denies any abdominal complaints or dysuria no hematuria. - Related Data Home Medications Medication Instructions Recorded Confirmed Atorvastatin [Lipitor] 40 mg PO DAILY 06/13/20 01/15/21 Carvedilol [Coreg] 12.5 mg PO BID 06/13/20 01/15/21 Losartan Potassium 100 mg PO DAILY 06/13/20 01/15/21 Allergies Allergy/AdvReac Type Severity Reaction Status Date / Time Sulfa (Sulfonamide Allergy Anaphylaxis Verified 01/15/21 13:41 Antibiotics) Review of Systems ROS Statement: Those systems with pertinent positive or pertinent negative responses have been documented in the HPI. ROS Other: All systems not noted in ROS Statement are negative. Past Medical History Past Medical History: COPD, Dementia, Diabetes Mellitus, Eye Disorder, Hyperlipidemia, Hypertension, Pneumonia Additional Past Medical History / Comment(s): Pt fell about 2 weeks ago and has had back pain since and not moving around, diabetes-no longer on any medications, cataract/laterallity unknown, occasional incontinence. History of Any Multi-Drug Resistant Organisms: None Reported Past Surgical History: Section, Orthopedic Surgery, Pacemaker Additional Past Surgical History / Comment(s): Cataract removal/laterallity unknown. Past Anesthesia/Blood Transfusion Reactions: No Reported Reaction Type of Cardiac Device: Permanent Pacemaker Device Placement Date:: June 2019 Past Psychological History: Anxiety, Depression Smoking Status: Former smoker Past Alcohol Use History: None Reported Past Drug Use History: None Reported - Past Family History Father History Unknown: Yes Additional Family Medical History / Comment(s): Jacqueline states she does not know history Mother History Unknown: Yes Additional Family Medical History / Comment(s): Jacqueline states she does not know history. General Exam Limitations: no limitations General appearance: alert, in no apparent distress Head exam: Present: atraumatic, normocephalic, normal inspection Eye exam: Present: normal appearance, PERRL, EOMI. Absent: scleral icterus, conjunctival injection, periorbital swelling ENT exam: Present: normal exam, normal oropharynx, mucous membranes moist Neck exam: Present: normal inspection, full ROM. Absent: tenderness, meningismus, lymphadenopathy Respiratory exam: Present: rhonchi. Absent: normal lung sounds bilaterally, respiratory distress, wheezes, rales, stridor Cardiovascular Exam: Present: regular rate, normal rhythm, normal heart sounds. Absent: systolic murmur, diastolic murmur, rubs, gallop, clicks GI/Abdominal exam: Present: soft, normal bowel sounds. Absent: distended, tenderness, guarding, rebound, rigid Course Vital Signs 01/15/21 11:15 Temperature 98.4 F Pulse Rate 85 Respiratory 18 Rate Blood Pressure 131/69 O2 Sat by Pulse 96 Oximetry Medical Decision Making - Medical Decision Making 85-year-old presented for possible hypoxia patient has been in no respiratory distress she does have moderate congestion chest x-ray shows possible atypical pneumonia consistent with a covid pneumonia. Patient is refusing all tests but she did allow chest x-ray. Patient will be given multiple antibodies and discharged in stable condition. - Lab Data Lab Results 01/15/21 Range/Units 12:40 Coronavirus (PCR) Detected A (Not Detectd) Disposition Clinical Impression: COVID-19 Disposition: HOME SELF-CARE Condition: Stable Instructions (If sedation given, give patient instructions): Coronavirus Disease 2019 (COVID-19) Additional Instructions: Please return to the Emergency Department if symptoms worsen or any other concerns. Is patient prescribed a controlled substance at d/c from ED?: No Referrals: William Green MD [Primary Care Provider] - 1-2 days Time of Disposition: 13:58
--- NOTE | 2021-01-15 13:15 | XR ---
EXAMINATION TYPE: XR chest 2V DATE OF EXAM: 01/15/2021 COMPARISON: 06/14/2020 INDICATION: Cough: Positive TECHNIQUE: Single frontal view of the chest is obtained. FINDINGS: The heart size is normal. The pulmonary vasculature is mildly prominent. No suspicious peripheral infiltrates are evident. Mild increased lung markings may be at the left bas e. Findings are nonspecific and can be compatible with atypical pneumonia. Atelectasis is also within differential. Pacemaker overlies left chest. Note is made of chronic rotator cuff tears bilaterally. IMPRESSION: 1. Mild infiltrate at the left base is nonspecific but can be related to atypical pneumonia or atelec tasis
[2021-01-15] MEDS ORDERED: CASIRIVIMAB (REGN10933) (EUA) 600 MG, IMDEVIMAB (REGN10987) (EUA) 600 MG in SODIUM CHLO... IVPB ONE (14:30)
[2021-01-15] MEDS ORDERED: SODIUM CHLORIDE 0.9% 50 ML IVPB ONE (15:00)
[2021-01-15 17:12] VITALS: BP 140/80; PULSE 87; RESP 16; TEMP 97.8
== END 2021-01-15 17:12 | disposition home or self-care (01) ==
LOC: EC 11:11
DX: U07.1 COVID-19 (principal); E11.9 Type 2 diabetes mellitus without complications; I10 Essential (primary) hypertension; J44.9 Chronic obstructive pulmonary disease, unspecified; F32.9 Major depressive disorder, single episode, unspecified; F41.9 Anxiety disorder, unspecified; Z87.891 Personal history of nicotine dependence; Z79.899 Other long term (current) drug therapy; Z88.2 Allergy status to sulfonamides
CPT/HCPCS: 87635; 71046; 99285; 96365; Q0243

== ENCOUNTER 2021-01-18 16:34 | Inpatient (IN) | payer MEDICARE ==
--- NOTE | 2021-01-18 17:04 | ED ---
General Adult HPI - General Chief complaint: Nausea/Vomiting/Diarrhea Stated complaint: Covid+, diarrhea Source: patient, RN notes reviewed, old records reviewed Mode of arrival: ambulatory Limitations: no limitations - History of Present Illness Initial comments: 85-year-old white female, alert and oriented 3 presents to the emergency room from [facility] with no complaints. Patient states that she just wants to go home, she has no complaints and she just wants to sleep. Per the nurse, EMS states patient was sent for diarrhea. She was diagnosed Covid positive last and was given monoclonal antibodies on January 15. Patient's vital signs are stable, she denies any pain, nausea, vomiting or fevers. Currently attempting to contact [facility] to determine the reason for transfer. Patient requesting [place] which was provided and patient is able to tolerate fluids. - Related Data Home Medications Medication Instructions Recorded Confirmed Atorvastatin [Lipitor] 40 mg PO DAILY 06/13/20 01/18/21 Carvedilol [Coreg] 12.5 mg PO BID 06/13/20 01/18/21 Losartan Potassium 100 mg PO DAILY 06/13/20 01/18/21 Allergies Allergy/AdvReac Type Severity Reaction Status Date / Time Sulfa (Sulfonamide Allergy Anaphylaxis Verified 01/18/21 17:18 Antibiotics) Review of Systems ROS Statement: Those systems with pertinent positive or pertinent negative responses have been documented in the HPI. ROS Other: All systems not noted in ROS Statement are negative. Past Medical History Past Medical History: COPD, Dementia, Diabetes Mellitus, Eye Disorder, Hyperlipidemia, Hypertension, Pneumonia Additional Past Medical History / Comment(s): Pt fell about 2 weeks ago and has had back pain since and not moving around, diabetes-no longer on any medications, cataract/laterallity unknown, occasional incontinence. History of Any Multi-Drug Resistant Organisms: None Reported Past Surgical History: Section, Orthopedic Surgery, Pacemaker Additional Past Surgical History / Comment(s): Cataract removal/laterallity unknown. Past Anesthesia/Blood Transfusion Reactions: No Reported Reaction Type of Cardiac Device: Permanent Pacemaker Device Placement Date:: June 2019 Past Psychological History: Anxiety, Depression Smoking Status: Former smoker Past Alcohol Use History: None Reported Past Drug Use History: None Reported - Past Family History Father History Unknown: Yes Additional Family Medical History / Comment(s): Jacqueline states she does not know history Mother History Unknown: Yes Additional Family Medical History / Comment(s): Jacqueline states she does not know history. General Exam Limitations: no limitations, altered mental status (history of dementia) General appearance: alert, in no apparent distress Head exam: Present: atraumatic, normocephalic, normal inspection Eye exam: Present: EOMI. Absent: scleral icterus, conjunctival injection, nystagmus, periorbital swelling, periorbital tenderness ENT exam: Present: normal exam, normal oropharynx, mucous membranes moist Neck exam: Present: normal inspection, full ROM. Absent: tenderness, meningismus, lymphadenopathy, thyromegaly Respiratory exam: Present: normal lung sounds bilaterally. Absent: respiratory distress, wheezes, rales, rhonchi, stridor, chest wall tenderness, accessory muscle use Cardiovascular Exam: Present: regular rate, normal rhythm, normal heart sounds. Absent: systolic murmur, diastolic murmur, rubs, gallop, clicks GI/Abdominal exam: Present: soft, normal bowel sounds. Absent: guarding, rebound, rigid Extremities exam: Present: normal inspection, full ROM, normal capillary refill. Absent: tenderness, pedal edema, joint swelling, calf tenderness Back exam: Present: normal inspection, full ROM. Absent: tenderness, CVA tenderness (R), CVA tenderness (L), muscle spasm, paraspinal tenderness, vertebral tenderness, rash noted Neurological exam: Present: alert, CN II-XII intact Expanded Patient oriented to: Present: person, place Speech: Present: fluid speech Cranial nerves: EOM's Intact: Normal, Gag Reflex: Normal, Tongue Deviation: Normal Eye Response: (4) open spontaneously Motor Response: (6) obeys commands Verbal Response: (5) oriented [place] Total: 15 Psychiatric exam: Present: normal affect, normal mood Skin exam: Present: warm, dry, intact, normal color. Absent: rash, cyanosis, diaphoretic, erythema, petechiae, pallor, mottled Course Vital Signs 01/18/21 01/18/21 16:40 17:36 Temperature 98.7 F Pulse Rate 77 76 Respiratory 18 18 Rate Blood Pressure 105/68 121/66 O2 Sat by Pulse 94 L 93 L Oximetry Medical Decision Making - Medical Decision Making BUN 93 and Creatinine is 2.71 last documented creatinine is 1.2 on June 152019. Alk phos is 245, lipase is 319, amylase of 135. CT shows mildly dilated extrahepatic common bile duct up to 8 mm. There is also a 5 mm calculus in the right kidney without hydronephrosis. Liver, spleen and gallbladder unremarkable there is a low attenuating lesion in the left adrenal gland measuring 2.4 x 1.4cm mass significantly changed compared to prior study in May 2020. No acute diverticulitis or acute appendicitis noted and no pneumoperitoneum or ascites. Patient will be admitted to the hospital to Dr. Green who was notified. Case was also discussed with Dr. Marx. IV fluids were started for rehydration. - Lab Data Result diagrams: 01/18/21 17:33 01/18/21 17:33 Lab Results 01/18/21 01/18/21 Range/Units 17:33 17:33 WBC 8.3 (3.8-10.6) k/uL RBC 4.25 (3.80-5.40) m/uL Hgb 13.5 (11.4-16.0) gm/dL Hct 40.7 (34.0-46.0) % MCV 95.8 (80.0-100.0) fL MCH 31.8 (25.0-35.0) pg MCHC 33.2 (31.0-37.0) g/dL RDW 14.3 (11.5-15.5) % Plt Count 253 (150-450) k/uL MPV 8.4 Neutrophils % 61 % Lymphocytes % 30 % Monocytes % 6 % Eosinophils % 1 % Basophils % 1 % Neutrophils # 5.1 (1.3-7.7) k/uL Lymphocytes # 2.5 (1.0-4.8) k/uL Monocytes # 0.5 (0-1.0) k/uL Eosinophils # 0.1 (0-0.7) k/uL Basophils # 0.0 (0-0.2) k/uL Sodium 140 (137-145) mmol/L Potassium 4.9 (3.5-5.1) mmol/L Chloride 109 H (98-107) mmol/L Carbon Dioxide 16 L (22-30) mmol/L Anion Gap 15 mmol/L BUN 93 H (7-17) mg/dL Creatinine 2.71 H (0.52-1.04) mg/dL Est GFR (CKD-EPI)AfAm 18 (>60 ml/min/1.73 sqM) Est GFR (CKD-EPI)NonAf 15 (>60 ml/min/1.73 sqM) Glucose 117 H (74-99) mg/dL Calcium 9.7 (8.4-10.2) mg/dL Total Bilirubin 0.7 (0.2-1.3) mg/dL AST 77 H (14-36) U/L ALT 32 (4-34) U/L Alkaline Phosphatase 245 H (38-126) U/L Total Protein 7.5 (6.3-8.2) g/dL Albumin 3.8 (3.5-5.0) g/dL Amylase 135 H (30-110) U/L Lipase 319 H (23-300) U/L Disposition Clinical Impression: Dehydration, NATHALIA (acute kidney injury) Disposition: ADMITTED IP TO THIS [facility] Referrals: William Green MD [Primary Care Provider] - 1-2 days Decision Date: 01/18/21 Decision Time: 18:52
[2021-01-18 17:50] LABS: Basophils % (A) 1 %; Eosinophils # (A) 0.1 k/uL (0-0.7); Eosinophils % (A) 1 %; HCT 40.7 % (34.0-46.0); HGB 13.5 gm/dL (11.4-16.0); Lymphocytes # (A) 2.5 k/uL (1.0-4.8); Lymphocytes % (A) 30 %; MCH 31.8 pg (25.0-35.0); MCHC 33.2 g/dL (31.0-37.0); MCV 95.8 fL (80.0-100.0); Mean Platelet Volume 8.4; Monocytes # (A) 0.5 k/uL (0-1.0); Monocytes % (A) 6 %; Neutrophils # (A) 5.1 k/uL (1.3-7.7); Neutrophils % (A) 61 %; Platelet Count 253 k/uL (150-450); RBC 4.25 m/uL (3.80-5.40); RDW 14.3 % (11.5-15.5); WBC 8.3 k/uL (3.8-10.6)
[2021-01-18 18:08] LABS: Albumin 3.8 g/dL (3.5-5.0); Calcium 9.7 mg/dL (8.4-10.2); Potassium 4.9 mmol/L (3.5-5.1); Total Bilirubin 0.7 mg/dL (0.2-1.3); Total Protein 7.5 g/dL (6.3-8.2)
--- NOTE | 2021-01-18 18:26 | CT ---
EXAMINATION TYPE: CT abdomen pelvis wo con DATE OF EXAM: 01/18/2021 COMPARISON: 06/14/2020 and prior HISTORY: Diarrhea and abdominal pain. TECHNIQUE: CT scan of the abdomen and pelvis performed without IV or oral contrast CT DLP: 349.7 mGycm Automated exposure control for dose reduction was used. FINDINGS: Lack of contrast limits evaluation of the CT study. Streak from patient's arms at the side are also l imiting factor. Interstitial opacities and fibrotic changes bibasilar atelectatic changes are seen in the included renee ngs and have increased in the interval. Intracardiac calcifications are noted. Partially seen dual-lead cardiac device. No cardiomegaly. Liver, spleen, and gallbladder are unremarkable. There is stable nodular thickening left greater than right of the bilateral adrenal glands. There is a low attenuating lesion in the left adrenal gland m easuring 2.4 x 1.4 cm not significantly changed in size compared to prior. There is partial fatty marko nges in the pancreas. There is mild dilatation of the extrahepatic common bile duct measuring up to 8 mm in diameter. The kidneys are normal in position. There is no hydronephrosis. A 5 mm calculus is seen in the right kidney lower pole. No perinephric stranding. No evidence of intestinal obstruction. No acute diverticulitis or evidence of acute appendicitis. The appendix is not definitely identified. No pneumoperitoneum or ascites. Aortic aneurysm in the distal thoracic aorta is again seen. The diameter of the distal thoracic aorta measures up to 4 cm and is not significantly changed in size. The wall of the aorta is diffusely ath erosclerotic. There is focal dilatation of the left side of the suprarenal abdominal aorta. The diame ter in the transverse plane there is 201 image 20 is 3.3 cm compared to 3.0 cm on prior study. There is also mild ectasia in the infra renal abdominal aorta series 201 image 33. No periaortic fluid or s tranding seen. Calcifications extend into the terminal branches of the abdominal aorta to the level o f the upper thigh. No enlarged retroperitoneal or pelvic lymph nodes. Uterus is not enlarged. Multiple calcifications are seen in the uterus suggesting leiomyomata. No abn ormal adnexal mass seen. Osseous structures are osteopenic. S-shaped scoliosis is seen in the spine. There is loss of vertebra l body height involving T12 vertebral body which has increased compared to prior study. Moderate mult ilevel narrowing of the intervertebral spaces, disc degenerative changes and facet joint arthropathy changes are seen in the thoracic and lumbar spine and have worsened compared to prior. No acute osseous abnormality. Noted on the included upper extremities are arthritic changes in the bi lateral wrists joints. IMPRESSION: 1. MILDLY DILATED EXTRAHEPATIC COMMON BILE DUCT UP TO 8 MM, CORRELATION WITH BILIRUBIN AND HEPATIC EN ZYMES RECOMMENDED. 2. STABLE LOW ATTENUATING LESION IN THE LEFT ADRENAL GLAND MEASURING UP TO 2.4 CM. 3. THERE IS A 5 MM CALCULUS IN THE RIGHT KIDNEY LOWER POLE WITHOUT HYDRONEPHROSIS, THIS CALCIFICATION COULD BE IN THE COLLECTING SYSTEM OR COULD BE PARENCHYMAL VASCULAR. 4. DISTAL THORACIC AORTIC ANEURYSM STABLE IN SIZE. SUPRARENAL ABDOMINAL AORTA ECTASIA SLIGHTLY INCREA SED MEASURING 3.3 CM VERSUS 3 CM ON PRIOR STUDY. MILD ECTASIA IN THE INFRARENAL ABDOMINAL AORTA. NO P ERIAORTIC FLUID OR STRANDING.DIFFUSE ATHEROSCLEROTIC CALCIFICATIONS IN THE AORTA. 5. LEIOMYOMATA. 6. INTERVAL WORSENING OF VERTEBRAL BODY HEIGHT LOSS INVOLVING T12.
[2021-01-18] MEDS ORDERED: SODIUM CHLORIDE 0.9% 500 ML 500 ML IV ONE (18:39)
[2021-01-18] MEDS ORDERED: NALOXONE 0.4 MG/ML 1 ML VIAL IV PRN (18:52)
[2021-01-18] MEDS ORDERED: ACETAMINOPHEN TAB 325 MG TAB PO PRN (18:52)
[2021-01-18 19:26] LABS: Appearance,Urine Cloudy (Clear); Bacteria,Urine Many /hpf; Bilirubin,Urine Negative (Negative); Blood,Urine Small (Negative); Color,Urine Yellow; Glucose,Urine (UA) Negative (Negative); Hyaline Casts,Urine 9 /lpf (0-2); Ketones,Urine Trace (Negative); Leukocyte Esterase,Urine Large (Negative); Mucus,Urine Rare /hpf; Nitrite,Urine Positive (Negative); Protein,Urine Trace (Negative); RBC,Urine 5 /hpf (0-5); Specific Gravity,Urine 1.012 (1.001-1.035); Squamous Epithelial Cell,Urine 1 /hpf (0-4); Urobilinogen,Urine <2.0 mg/dL (<2.0); WBC,Urine 92 /hpf (0-5)
[2021-01-18] MEDS: SODIUM CHLORIDE 0.9% 1,000 ML IV SCH (19:35)
[2021-01-18] MEDS ORDERED: HALOPERIDOL LACTATE 5 MG/ML 1 ML VIAL IM ONE (22:27)
[2021-01-19 07:33] LABS: Basophils % (A) 0 %; Eosinophils % (A) 1 %; HCT 39.2 % (34.0-46.0); HGB 12.9 gm/dL (11.4-16.0); Lymphocytes # (A) 1.9 k/uL (1.0-4.8); Lymphocytes % (A) 24 %; MCH 31.8 pg (25.0-35.0); MCHC 32.9 g/dL (31.0-37.0); MCV 96.6 fL (80.0-100.0); Monocytes # (A) 0.5 k/uL (0-1.0); Monocytes % (A) 6 %; Neutrophils # (A) 5.4 k/uL (1.3-7.7); Neutrophils % (A) 68 %; Platelet Count 300 k/uL (150-450); RBC 4.06 m/uL (3.80-5.40); RDW 14.4 % (11.5-15.5)
[2021-01-19 07:47] LABS: African American GFR (CKD) 37 (>60 ml/min/1.73 sqM); Amylase 100 U/L (30-110); Anion Gap 14 mmol/L; Blood Urea Nitrogen 67 mg/dL (7-17); Calcium 9.6 mg/dL (8.4-10.2); Carbon Dioxide 19 mmol/L (22-30); Chloride 115 mmol/L (98-107); Glucose 124 mg/dL (74-99); Lipase 262 U/L (23-300); Non-African American GFR(CKD) 32 (>60 ml/min/1.73 sqM); Potassium 4.6 mmol/L (3.5-5.1); Sodium 148 mmol/L (137-145)
--- NOTE | 2021-01-19 08:34 | US ---
EXAMINATION TYPE: US abdomen complete DATE OF EXAM: 01/19/2021 COMPARISON: CLINICAL HISTORY: pancreatitis. Altered mental status. Combative. EXAM MEASUREMENTS: Liver Length: 14.4 cm Gallbladder Wall: 01 cm CBD: 0.8 cm Spleen: 7.8 cm Right Kidney: 8.0 x 3.7 x 3.7 cm Left Kidney: 8.2 x 4.4 x 4.3 cm Pancreas: Tail obscured by overlying bowel gas Liver: Coarse. Limited due to patient being uncooperative. Gallbladder: wnl Evidence for sonographic Wynn's sign: neg CBD: wnl for patient age Spleen: wnl Right Kidney: No hydronephrosis or masses seen, limited Left Kidney: No hydronephrosis or masses seen, limited Upper IVC: wnl Abd Aorta: Mid/Distal AAA = 3.3 x 2.1 x 2.1 cm. IMPRESSION: 1. Fusiform prominence mid abdominal aorta with a diameter of 2.1 cm.
[2021-01-19] MEDS: DEXAMETHASONE SOD PHOSPHATE 10 MG/ML 1 ML VIAL IV SCH (10:06)
[2021-01-19] MEDS: SODIUM CHLORIDE 0.9% 1,000 ML IV SCH (10:07)
[2021-01-19] MEDS: carvediloL 12.5 MG TAB PO SCH ×2 (10:07→16:51)
[2021-01-19] MEDS: AZITHROMYCIN 500 MG in SODIUM CHLORIDE 0.9% 250 ML IVPB SCH (10:07)
[2021-01-19] MEDS: ATORVASTATIN 40 MG TAB PO SCH (10:07)
[2021-01-19] MEDS: LOSARTAN 50 MG TAB PO SCH (10:07)
--- NOTE | 2021-01-19 12:26 | P.CNPUL ---
History of Present Illness Consult date: 01/19/21 Reason for consult: other Chief complaint: Abnormal labs History of present illness: This is a 81-year-old with advanced dementia came into emergency department in transfer from [facility] it appears that patient has been found to have COVID-19 pneumonia testing positive for repeat testing in the hospital are pending, if was a week ago she is status post monoclonal antibody infusion on January 15, hemodynamic status stable she's on room air denies any chest pain or shortness of breath, staff in process of obtaining the records, her past medical history is significant for dyslipidemia hypertension hypertensive cardiovascular disease, COPD, there is a history of fall about 2 weeks ago since then she is having some back pain however currently denying it, review of the labs are reviewed normal CBC, sodium is 148, BUN/creatinine was 93/2.7 came down to 67 on 0.47 with gentle rehydration, urine is cloudy with large leukocyte esterase and nitrates many WBC clumps and urine bacteria, culture is pending, computed tomography scan of the pelvis and abdomen significant for dilated common bile duct, adrenal gland lesion 2.4 cm, calculus in the right kidney, no hydronephrosis seen, distal thoracic aneurysm and T12 compression fracture, chest x-rays not done, patient remains on Zithromax and Rocephin, with gentle rehydration and IV fluids 75 mL an hour Review of Systems All systems: negative Past Medical History Past Medical History: COPD, Dementia, Diabetes Mellitus, Eye Disorder, Hyperlipidemia, Hypertension, Pneumonia Additional Past Medical History / Comment(s): Pt fell about 2 weeks ago and has had back pain since and not moving around, diabetes-no longer on any medications, cataract/laterallity unknown, occasional incontinence. History of Any Multi-Drug Resistant Organisms: None Reported Past Surgical History: Section, Orthopedic Surgery, Pacemaker Additional Past Surgical History / Comment(s): Cataract removal/laterallity unknown. Past Anesthesia/Blood Transfusion Reactions: No Reported Reaction Type of Cardiac Device: Permanent Pacemaker Device Placement Date:: June 2019 Past Psychological History: Anxiety, Depression Additional Psychological History / Comment(s): Pt resides alone. Shantelle Phillips, states they are currently moving her belongings into [place], family is no longer able to care for pt, pt refuses some of their attempts. Daughters manage pts medications and cook for her. Pt has been ambulating very little past 2 weeks since falling. Smoking Status: Former smoker Past Alcohol Use History: None Reported Additional Past Alcohol Use History / Comment(s): Pt started smoking as a teen and quit approximately a month ago. She quit off and on over the years. Past Drug Use History: None Reported - Past Family History Father History Unknown: Yes Additional Family Medical History / Comment(s): Jacqueline states she does not know history Mother History Unknown: Yes Additional Family Medical History / Comment(s): Jacqueline states she does not know history. Medications and Allergies Home Medications Medication Instructions Recorded Confirmed Type Atorvastatin [Lipitor] 40 mg PO DAILY 06/13/20 01/18/21 History Carvedilol [Coreg] 12.5 mg PO BID 06/13/20 01/18/21 History Losartan Potassium 100 mg PO DAILY 06/13/20 01/18/21 History Allergies Allergy/AdvReac Type Severity Reaction Status Date / Time Sulfa (Sulfonamide Allergy Anaphylaxis Verified 01/18/21 17:18 Antibiotics) Physical Exam Vitals: Vital Signs Temp Pulse Pulse Pulse Resp BP BP 01/19/21 10:23 98.6 F 94 18 133/83 01/19/21 08:00 97.8 F 92 18 143/79 01/19/21 02:00 98.3 F 86 16 154/86 01/18/21 21:00 78 16 118/61 01/18/21 17:36 76 18 121/66 01/18/21 16:40 98.7 F 77 18 105/68 Pulse Ox 01/19/21 10:23 95 01/19/21 08:00 93 L 01/19/21 02:00 94 L 01/18/21 21:00 96 01/18/21 17:36 93 L 01/18/21 16:40 94 L Intake and Output 01/18/21 01/19/21 01/19/21 22:59 06:59 14:59 Intake Total 0 Balance 0 Intake: Oral 0 Other: Voiding Method Bedpan Bedpan Diaper Incontinent # Voids 2 Weight 49.442 kg - Constitutional General appearance: average body habitus, cooperative, disheveled - EENT Eyes: PERRLA Ears: bilateral: normal - Neck Neck: normal ROM Carotids: right: upstroke normal Thyroid: bilateral: normal size - Respiratory Respiratory: bilateral: CTA - Cardiovascular Rhythm: regular Heart sounds: normal: S1, S2 - Gastrointestinal General gastrointestinal: normal bowel sounds, soft - Integumentary Integumentary: decreased turgor - Neurologic Neurologic: CNII-XII intact - Musculoskeletal Musculoskeletal: generalized weakness - Psychiatric Psychiatric: A&O x's 3 Results - Laboratory Findings CBC and BMP: 01/19/21 07:18 01/19/21 07:18 Abnormal lab findings: Abnormal Labs 01/18/21 01/18/21 01/19/21 17:33 19:14 07:18 Sodium 148 H Chloride 109 H 115 H Carbon Dioxide 16 L 19 L BUN 93 H 67 H Creatinine 2.71 H 1.47 H Glucose 117 H 124 H AST 77 H Alkaline Phosphatase 245 H Amylase 135 H Lipase 319 H Urine Appearance Cloudy H Urine Protein Trace H Urine Ketones Trace H Urine Blood Small H Urine Nitrite Positive H Ur Leukocyte Esterase Large H Urine WBC 92 H Urine WBC Clumps Many H Urine Bacteria Many H Hyaline Casts 9 H Urine Mucus Rare H Assessment and Plan Assessment: Acute kidney injury Urinary tract infection COVID-19 infection Advanced up chills on's disease Mild hypernatremia Plan: Agree with gentle hydration and monitor and trend renal functions Antibiotics for urinary tract infection Will obtain a chest x-ray apparently at this point in time no active therapy is recommended as her oxygen saturation is stable and she is not in respiratory distress Time with Patient: Greater than 30
[2021-01-19 12:52] LABS: C Reactive Protein 5.3 mg/dL (<1.0)
--- NOTE | 2021-01-19 16:25 | XR ---
EXAMINATION TYPE: XR chest 1V portable DATE OF EXAM: 01/19/2021 Comparison: 01/15/2021 Clinical History: 85-year-old female COVID, pneumonia Findings: Left anterior chest wall pacemaker generator with right atrial and right ventricular leads. Heart is enlarged. Tortuous/ectatic thoracic aorta. Increased patchy interstitial opacities bilaterally. Right mcdowell patient rotation. No sizable effusion. Hyperinflation. Loss of the subacromial space on both padmini es suggesting chronic full-thickness rotator cuff tears. Impression: Mild cardiomegaly and COPD. Aortic tortuosity/ectasia redemonstrated. Increased peripheral interstiti al infiltrates which can be seen with atypical pneumonia.
[2021-01-20] MEDS: SODIUM CHLORIDE 0.9% 1,000 ML IV SCH ×2 (00:27→13:17)
--- NOTE | 2021-01-20 07:34 | CONS ---
CONSULTATION DATE OF SERVICE: 01/19/2021 REASON FOR CONSULTATION: UTI and COVID pneumonia. HISTORY OF PRESENT ILLNESS: The patient is an 85-year-old female, resident of the [facility], with underlying dementia. This patient was recently diagnosed with COVID-19. Last week the patient did receive monoclonal antibodies on . The patient has been sent to the ER for not very clear reason, as no significant documentation on the ER notes. Patient at the time of my evaluation has been saying she is feeling better, wants to go home and she asked me to take her home. The patient is currently on room air. She is breathing comfortably. Sitter is at the bedside. No significant cough has been noticed. No vomiting, diarrhea. The patient denies any chest pain or shortness of breath or cough and no symptoms. On presentation to the hospital the patient was afebrile. The patient did have a normal white count with no lymphopenia. BUN and creatinine were not elevated. AST was mildly elevated. She did have positive UA. Negron PCR came back positive. The patient was started on Rocephin and Zithromax, admitted to the hospital. Infectious Disease was consulted for further management of antibiotic therapy. The patient did have a CT of abdomen and pelvis that did show some dilated CBD, however, no abnormality on the ultrasound. Most of the information has been obtained from review of the chart and talking to nursing staff as the patient was not able to provide a reliable history. REVIEW OF SYSTEMS: Positive points have been mentioned in HPI. Complete review could not be obtained because of underlying mental status. PAST MEDICAL HISTORY: COPD, dementia, diabetes mellitus, hyperlipidemia, hypertension, pneumonia. PAST SURGICAL HISTORY: , pacemaker placement, cataract surgery. SOCIAL HISTORY: Remote history of smoking. No drinking or drug use. FAMILY HISTORY: No pertinent findings noticed. ALLERGIES: SULFA. MEDICATIONS: The patient is currently on Tylenol, Lipitor, Zithromax, Coreg, Rocephin, Decadron, Cozaar, Narcan. PHYSICAL EXAMINATION: VITAL SIGNS: On examination, her blood pressure is 137/85 with a pulse of 92, temperature is 97.8, she is 95% on room air. GENERAL DESCRIPTION: The patient is an elderly female lying in bed in no distress. No tachypnea or accessory muscles of respiration use. HEENT: Examination shows no pallor or scleral icterus. Oral mucous membrane is dry. NECK: Trachea central, no thyromegaly. LUNGS: Unlabored breathing, decreased intensity of breath sounds. No wheeze or crackle. HEART: S1-S2, regular rate and rhythm. ABDOMEN: Soft, no tenderness. No guarding or rigidity. EXTREMITIES: No edema of the feet. SKIN: No rash or mass palpable. NEUROLOGICAL: Patient is awake, alert, oriented times three. Mood and affect normal. LABS: Hemoglobin is 12.8, white count 8.0, BUN of 67, creatinine 1.47. D-dimer is 2.01. Negron PCR was detected. CT report as mentioned above. DIAGNOSTIC IMPRESSION: 1. Patient admitted to the hospital with mental status changes, diarrhea, in this patient who has been recently diagnosed with COVID-19 infection and has received monoclonal antibody. The patient currently does not have any fever or hypoxemia. Treatment will mostly be supportive and no need for Remdesivir. 2. Patient did have a positive UA and mental status changes. Concern for possible symptomatic urinary tract infection. PLAN: 1. We will obtain chest x-ray, CRP, procalcitonin, and d-dimer. 2. We will continue the patient on Rocephin 1 g daily while waiting for the culture to finalize. 3. We will add zinc, ascorbic acid and Lovenox to her treatment regimen. 4. We will follow on clinical condition to further adjust medication if needed. Thank you for this consultation. Will follow this patient along with you. MMODL / IJN: [id number] /
[2021-01-20 09:10] LABS: Basophils # (A) 0.1 k/uL (0-0.2); Basophils % (A) 1 %; Eosinophils % (A) 0 %; HCT 44.2 % (34.0-46.0); HGB 13.5 gm/dL (11.4-16.0); Hypochromasia Marked; Lymphocytes # (A) 0.7 k/uL (1.0-4.8); Lymphocytes % (A) 10 %; MCH 32.6 pg (25.0-35.0); MCHC 30.6 g/dL (31.0-37.0); Macrocytosis Moderate; Mean Platelet Volume 8.5; Monocytes # (A) 0.4 k/uL (0-1.0); Monocytes % (A) 6 %; Neutrophils # (A) 5.5 k/uL (1.3-7.7); Neutrophils % (A) 82 %; Platelet Count 302 k/uL (150-450); RBC 4.14 m/uL (3.80-5.40); RDW 14.7 % (11.5-15.5); WBC 6.7 k/uL (3.8-10.6)
[2021-01-20 09:13] LABS: MCV 106.7 fL (80.0-100.0)
[2021-01-20 09:20] LABS: ALT 23 U/L (4-34); AST 50 U/L (14-36); African American GFR (CKD) 69 (>60 ml/min/1.73 sqM); Albumin 3.5 g/dL (3.5-5.0); Alkaline Phosphatase 207 U/L (38-126); Anion Gap 15 mmol/L; Blood Urea Nitrogen 44 mg/dL (7-17); Calcium 9.4 mg/dL (8.4-10.2); Carbon Dioxide 15 mmol/L (22-30); Chloride 117 mmol/L (98-107); Globulin 3.4 g/dL; Glucose 176 mg/dL (74-99); Non-African American GFR(CKD) 60 (>60 ml/min/1.73 sqM); Potassium 3.6 mmol/L (3.5-5.1); Sodium 147 mmol/L (137-145); Total Bilirubin 0.5 mg/dL (0.2-1.3); Total Protein 6.9 g/dL (6.3-8.2)
[2021-01-20] MEDS: LORazepam 2 MG/ML INJ IV PRN (12:34)
[2021-01-20] MEDS: carvediloL 12.5 MG TAB PO SCH ×2 (13:15→16:33)
[2021-01-20] MEDS: ASCORBIC ACID 500 MG TAB PO SCH (13:15)
[2021-01-20] MEDS: AZITHROMYCIN 500 MG in SODIUM CHLORIDE 0.9% 250 ML IVPB SCH (13:16)
[2021-01-20] MEDS: ATORVASTATIN 40 MG TAB PO SCH (13:16)
[2021-01-20] MEDS: DEXAMETHASONE SOD PHOSPHATE 10 MG/ML 1 ML VIAL IV SCH (13:16)
[2021-01-20] MEDS: ENOXAPARIN 40 MG/0.4 ML SYRINGE SQ SCH (13:16)
[2021-01-20] MEDS: ZINC SULFATE 220 MG CAP PO SCH (13:17)
[2021-01-20] MEDS: LOSARTAN 50 MG TAB PO SCH (13:17)
--- NOTE | 2021-01-20 16:59 | PN ---
PROGRESS NOTE DATE OF SERVICE: 01/20/2021. REASON FOR FOLLOWUP: 1. Urinary tract infection. 2. Positive COVID. INTERVAL HISTORY: The patient is afebrile. The patient is currently breathing comfortably on room air. The patient is sleepy and was unable to provide any history. No vomiting, diarrhea or other changes reported by the sitter at the bedside. PHYSICAL EXAMINATION: Blood pressure 120/67, pulse of 81, temperature 98.9. General description is an elderly female lying in bed in no distress. Respiratory system: Unlabored breathing, decreased breath sounds on. Abdomen soft, no tenderness. Extremities: No edema of the feet. LABS: Hemoglobin is 13.1, white count 6.7, BUN of 14, creatinine 0.88. DIAGNOSTIC IMPRESSION AND PLAN: 1. Patient with urinary tract infection with the urine showing a Gram-negative. Patient is covered with Rocephin. 2. Patient with a positive COVID. The patient has received the monoclonal antibodies. Chest x-ray: Some peripheral interstitial infiltrate. The patient is currently not hypoxic. Treatment will be mostly supportive, however, monitor clinical course closely and continue supportive care. MMODL / IJN: [id number] /
--- NOTE | 2021-01-20 17:16 | P.PN ---
Progress Note - Text Progress Note Date: 01/20/21 Presenting complaint: Diarrhea Interval history: I'm rounding today for Dr. William Green Patient was admitted to the ER with diarrhea. She tested positive for COVID a week ago. It was given monoclonal antibodies in January 15. Patient's baseline is that she is oriented to herself. No fever or respiratory symptoms reported. January 20: Laying in bed. Patient been refusing food. Did walk with physical therapy. Has a sitter. No respiratory symptoms. Review of systems: Was done for constitutional, cardiovascular, GI, pulmonary. relevant finding as above On examination: VITAL SIGNS: 97.9, 81, 18, 121/67, 91% room air GENERAL APPEARANCE: Laying in bed, appears comfortable. HEENT: Normal external appearance of nose and ear. Oral cavity normal EYES: Pupils equal. Conjunctiva normal. NECK: JVD not raised. Mass not palpable. RESPIRATORY: Respiratory effort normal. Lungs clear to auscultation. CARDIOVASCULAR: First and second sounds normal. No edema. ABDOMEN: Soft. Liver and spleen not palpable. No tenderness. No mass palpable. MUSCULAR skeletal: Evidence of OA. PSYCHIATRY: Answering simple questions INVESTIGATIONS, reviewed in the clinical context: White count 6.7 hemoglobin 13.5 platelets 302 sodium 147 potassium 3.6 bicarb 15 creatinine 0.88 Pro-calcitonin 0.13 UA positive for numerous trace WBC Coronavirus [PCR]: Detected Chest x-ray: Hyperinflated. Patchy interstitial opacities bilateral. Pacemaker cardiomegaly. Abdominal ultrasound: Abdominal ultrasound 2.1 cm Computed tomography scan of the abdomen and pelvis: 5 mm calculus in right kidney. Worsening of vertebral body height involving T12. Distal thoracic aortic aneurysm stable in size. Suprarenal abdominal aorta. Assessment and plan: -Acute delirium from likely COVID 19 Follow clinically. Patient has a sitter. Start Seroquel 12.5 mg by mouth daily at bedtime. -Acute diarrhea from COVID 19. Symptomatically treatment -COVID 19, bilateral pneumonia. 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 DuoNeb when necessary -Permanent pacemaker -Primary osteoarthritis Pain medications as needed -T12 compression fracture, from a fall 2 weeks ago Lidocaine 5% patch Apply a lidocaine 5% at the level of T12. Had ensure. Use DuoNeb as needed. Change dexamethasone to by mouth. Seroquel 12.5 mg by mouth daily at bedtime.
[2021-01-20] MEDS: DEXTROSE 5% IN WATER 1,000 ML with SODIUM BICARB (1 MEQ/ML) 50 ML IV SCH (18:20)
[2021-01-20] MEDS: QUEtiapine 25 MG TAB PO SCH (22:22)
[2021-01-21] MEDS: DEXTROSE 5% IN WATER 1,000 ML with SODIUM BICARB (1 MEQ/ML) 50 ML IV SCH (05:52)
[2021-01-21 06:52] LABS: Glucose,Whole Blood 156 mg/dL (75-99)
[2021-01-21] MEDS: AZITHROMYCIN 500 MG in SODIUM CHLORIDE 0.9% 250 ML IVPB SCH (08:49)
[2021-01-21] MEDS: ENOXAPARIN 40 MG/0.4 ML SYRINGE SQ SCH (08:49)
[2021-01-21] MEDS: LOSARTAN 50 MG TAB PO SCH (08:55)
[2021-01-21] MEDS: ZINC SULFATE 220 MG CAP PO SCH (08:55)
[2021-01-21] MEDS: LIDOCAINE 5% PATCH TOPICAL SCH (08:55)
[2021-01-21] MEDS: ASCORBIC ACID 500 MG TAB PO SCH (08:55)
[2021-01-21] MEDS: carvediloL 12.5 MG TAB PO SCH ×2 (08:55→17:21)
[2021-01-21] MEDS: ATORVASTATIN 40 MG TAB PO SCH (08:55)
[2021-01-21] MEDS: dexAMETHasone 2 MG TAB PO SCH (08:55)
--- NOTE | 2021-01-21 12:24 | PN ---
PROGRESS NOTE 85-year-old female with advanced dementia came with Covid 19 pneumonia. Tested positive. Status post monoclonal antibody infusion January 15, dyslipidemia hypertension, hypertensive cardiovascular disease, COPD. Normal CBC, sodium 148, BUN and creatinine is 93, and 2.7. Large leukocyte esterase, nitrates. CT scan of abdomen and pelvis showed dilated common bile duct, adrenal gland lesion 2.4, calculus in the right kidney, distal thoracic aneurysm, T12 compression fracture. Started on Rocephin and azithromycin and Decadron for positive Covid and fluid, rehydration for prerenal renal azotemia. 14-point review of system: Extreme fatigue, weakness, shortness of breath, lightheadedness, dizziness. Surgery: Pacemaker. Anxiety, depression. Social history: Resides alone at [facility]. Daughter manages medicines. Former smoker, no alcohol. FAMILY HISTORY: Father unknown. Mother unknown. MEDICATIONS: Home medicines: Lipitor 40 daily, Coreg 12.5 b.i.d., losartan 100 mg daily. ALLERGY: SULFA. PAST MEDICAL HISTORY: Descending aortic aneurysm, hypertension, navicular fractures. PHYSICAL EXAMINATION: Temp 98.7, pulse 60s to 70s, respiratory 16-18, blood pressure 118 to 120s over 60s to 70s. Cardiovascular S1-S2. Lungs clear. GI soft. Hematology negative Homans. Integument: Dry skin, poor skin turgor, dry mucous membranes. Musculoskeletal: Range of motion full. Psych: Fair mood and affect. ASSESSMENT: 1. Prerenal renal azotemia. 2. Severe dehydration. 3. Covid pneumonia. 4. Covid 19. 5. Gastroenteritis. 6. Navicular fracture. 7. Descending aortic aneurysm. Monitor, aggressive rehydration, treated for Covid . Prognosis guarded. MMODL / IJN: [id number] /
--- NOTE | 2021-01-21 12:25 | PN ---
PROGRESS NOTE DATE OF SERVICE: 01/19/2021. 85-year-old white female, acute kidney injury, Covid pneumonia. She is improving and rehydrated. She is more alert. CARDIOVASCULAR: S1, S2. Lungs clear. GI soft. Skin decreased skin turgor. ASSESSMENT: 1. Dehydration. 2. Gastroenteritis. 3. Covid pneumonia. 4. Prognosis guarded. Continue with current Covid treatments. Rehydration. Monitor renal function. MMODL / IJN: [id number] /
--- NOTE | 2021-01-21 12:31 | P.PN ---
Subjective Progress Note Date: 01/21/21 Principal diagnosis: Agitated dementia/delirium Acute kidney injury Urinary tract infection COVID-19 infection Mild hypernatremia 01/21/2021, patient seen eval examined during the rounds labs reviewed medications reviewed care plan discussed, respiratory status remains stable, patient remains on room air intermittent episodes of anxiety and agitation is seen, sitter at bedside, renal function significantly improved, elevated d-dimer likely related to inflammatory process due to COVID-19 infection, patient remains afebrile oxygen saturation is 96% on room air visible signs of respiratory distress seen This is a 81-year-old with advanced dementia came into emergency department in transfer from [facility] it appears that patient has been found to have COVID-19 pneumonia testing positive for repeat testing in the hospital are pending, if was a week ago she is status post monoclonal antibody infusion on January 15, hemodynamic status stable she's on room air denies any chest pain or shortness of breath, staff in process of obtaining the records, her past medical history is significant for dyslipidemia hypertension hypertensive cardiovascular disease, COPD, there is a history of fall about 2 weeks ago since then she is having some back pain however currently denying it, review of the labs are reviewed normal CBC, sodium is 148, BUN/creatinine was 93/2.7 came down to 67 on 0.47 with gentle rehydration, urine is cloudy with large leukocyte esterase and nitrates many WBC clumps and urine bacteria, culture is pending, computed tomography scan of the pelvis and abdomen significant for dilated common bile duct, adrenal gland lesion 2.4 cm, calculus in the right kidney, no hydronephrosis seen, distal thoracic aneurysm and T12 compression fracture, chest x-rays not done, patient remains on Zithromax and Rocephin, with gentle rehydration and IV fluids 75 mL an hour Objective - Vital Signs Vital signs: Vital Signs Temp 98.2 F 01/21/21 10:02 Pulse 99 01/21/21 10:02 Resp 19 01/21/21 10:02 BP 115/73 01/21/21 10:02 Pulse Ox 96 01/21/21 10:02 Intake & Output 01/20/21 01/21/21 01/21/21 18:59 06:59 18:59 Intake Total 240 Balance 240 Intake: Oral 240 Other: Voiding Method Diaper Diaper Incontinent Incontinent # Voids 2 - Exam Constitutional General appearance: average body habitus, cooperative, disheveled - EENT Eyes: PERRLA Ears: bilateral: normal - Neck Neck: normal ROM Carotids: right: upstroke normal Thyroid: bilateral: normal size - Respiratory Respiratory: bilateral: CTA - Cardiovascular Rhythm: regular Heart sounds: normal: S1, S2 - Gastrointestinal General gastrointestinal: normal bowel sounds, soft - Integumentary Integumentary: decreased turgor - Neurologic Neurologic: CNII-XII intact - Musculoskeletal Musculoskeletal: generalized weakness - Labs CBC & Chem 7: 01/20/21 08:21 01/20/21 08:21 Labs: Abnormal Lab Results - Last 24 Hours (Table) 01/21/21 Range/Units 06:51 POC Glucose (mg/dL) 156 H (75-99) mg/dL Microbiology - Last 24 Hours (Table) 01/18/21 19:14 Urine Culture - Final Urine,Clean Catch Escherichia coli Assessment and Plan Assessment: Acute kidney injury Urinary tract infection COVID-19 infection Agitated dementia and Alzheimer's disease Mild hypernatremia Plan: Agree with gentle hydration and monitor and trend renal functions Antibiotics for urinary tract infection Chest x-ray reviewed cardiomegaly and COPD-like changes are seen mild interstitial prominence could be nonspecific however in light of normal oxygenation will hold on steroids as it may exacerbate her agitation Time with Patient: Greater than 30
--- NOTE | 2021-01-21 16:45 | P.PN ---
Progress Note - Text Progress Note Date: 01/21/21 Presenting complaint: Diarrhea Interval history: I'm rounding today for Dr. William Green Patient was admitted to the ER with diarrhea. She tested positive for COVID a week ago. It was given monoclonal antibodies in January 15. Patient's baseline is that she is oriented to herself. No fever or respiratory symptoms reported. January 20: Laying in bed. Patient been refusing food. Did walk with physical therapy. Has a sitter. No respiratory symptoms. Seroquel 12.5 mg at night started. January 21: Decreased oral intake. In bed. Back pain better with Lidoderm patch. Has a sitter. Review of systems: Attempted for constitutional, cardiovascular, GI, pulmonary. relevant finding as above Active Medications Acetaminophen (Acetaminophen Tab 325 Mg Tab) 650 mg PO Q6HR PRN PRN Reason: Mild Pain or Fever > 100.5 Ascorbic Acid (Ascorbic Acid 500 Mg Tab) 1,000 mg PO DAILY [facility] Last Admin: 01/21/21 08:55 Dose: Not Given Documented by: Atorvastatin Calcium (Atorvastatin 40 Mg Tab) 40 mg PO DAILY [facility] Last Admin: 01/21/21 08:55 Dose: Not Given Documented by: Carvedilol (Carvedilol 12.5 Mg Tab) 12.5 mg PO BID-W/MEALS [facility] Last Admin: 01/21/21 08:55 Dose: Not Given Documented by: Dexamethasone (Dexamethasone 2 Mg Tab) 6 mg PO DAILY [facility] Last Admin: 01/21/21 08:55 Dose: Not Given Documented by: Enoxaparin Sodium (Enoxaparin 40 Mg/0.4 Ml Syringe) 40 mg SQ DAILY [facility] Last Admin: 01/21/21 08:49 Dose: 40 mg Documented by: Azithromycin 500 mg/ Sodium (Chloride) 250 mls @ 250 mls/hr IVPB DAILY [facility] Last Admin: 01/21/21 08:49 Dose: 250 mls/hr Documented by: Ceftriaxone Sodium 1 gm/ (Sodium Chloride) 50 mls @ 100 mls/hr IVPB Q24H [facility] Last Admin: 01/21/21 01:02 Dose: 100 mls/hr Documented by: Sodium Bicarbonate 50 ml/ (Dextrose/Water) 1,050 mls @ 75 mls/hr IV .Q14H [facility] Last Admin: 01/21/21 05:52 Dose: 75 mls/hr Documented by: Lidocaine (Lidocaine 5% Patch) 1 patch TOPICAL DAILY@0800 [facility]; Protocol Last Admin: 01/21/21 08:55 Dose: Not Given Documented by: Lorazepam (Lorazepam 2 Mg/Ml Inj) 1 mg IV Q6HR PRN PRN Reason: Anxiety Last Admin: 01/20/21 12:34 Dose: 1 mg Documented by: Losartan Potassium (Losartan 50 Mg Tab) 100 mg PO DAILY [facility] Last Admin: 01/21/21 08:55 Dose: Not Given Documented by: Naloxone HCl (Naloxone 0.4 Mg/Ml 1 Ml Vial) 0.2 mg IV Q2M PRN PRN Reason: Opioid Reversal Quetiapine Fumarate (Quetiapine 25 Mg Tab) 12.5 mg PO HS [facility] Last Admin: 01/20/21 22:22 Dose: Not Given Documented by: Zinc Sulfate (Zinc Sulfate 220 Mg Cap) 220 mg PO DAILY [facility] Last Admin: 01/21/21 08:55 Dose: Not Given Documented by: On examination: VITAL SIGNS: 99, 19, 115/73, 96% room air GENERAL APPEARANCE: Laying in bed, appears comfortable. HEENT: Normal external appearance of nose and ear. Oral cavity normal EYES: Pupils equal. Conjunctiva normal. NECK: JVD not raised. Mass not palpable. RESPIRATORY: Respiratory effort normal. Lungs clear to auscultation. CARDIOVASCULAR: First and second sounds normal. No edema. ABDOMEN: Soft. Liver and spleen not palpable. No tenderness. No mass palpable. MUSCULAR skeletal: Evidence of OA. PSYCHIATRY: Answering simple questions INVESTIGATIONS, reviewed in the clinical context: White count 6.7 hemoglobin 13.5 platelets 302 sodium 147 potassium 3.6 bicarb 15 creatinine 0.88 Pro-calcitonin 0.13 UA positive for numerous trace WBC Coronavirus [PCR]: Detected Chest x-ray: Hyperinflated. Patchy interstitial opacities bilateral. Pacemaker cardiomegaly. Abdominal ultrasound: Abdominal ultrasound 2.1 cm Computed tomography scan of the abdomen and pelvis: 5 mm calculus in right kidney. Worsening of vertebral body height involving T12. Distal thoracic aortic aneurysm stable in size. Suprarenal abdominal aorta. Assessment and plan: -Acute delirium from likely COVID 19 sitter. Seroquel 12.5 mg daily at bedtime -Acute diarrhea from COVID 19. Symptomatically treatment -COVID 19, bilateral pneumonia. 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 DuoNeb when necessary -Permanent pacemaker -Primary osteoarthritis Pain medications as needed -T12 compression fracture, from a fall 2 weeks ago Lidocaine 5% patch Continue current medication treatment plan. Encourage oral intake. Patient has disrupted sleep cycle.
[2021-01-21] MEDS: QUEtiapine 25 MG TAB PO SCH (21:04)
[2021-01-22] MEDS: DEXTROSE 5% IN WATER 1,000 ML with SODIUM BICARB (1 MEQ/ML) 50 ML IV SCH ×3 (00:44→22:32)
[2021-01-22] MEDS: LORazepam 2 MG/ML INJ IV PRN ×2 (00:44→17:01)
--- NOTE | 2021-01-22 06:21 | PN ---
PROGRESS NOTE DATE OF SERVICE: 01/21/2021 REASON FOR FOLLOWUP: 1. Covid 19 infection. 2. UTI. INTERVAL HISTORY: The patient is afebrile. The patient is currently breathing comfortably. She is sating 96% on room air. The patient was unable to provide any history. No vomiting, diarrhea or any other changes reported by the sitter at the bedside. PHYSICAL EXAMINATION: Blood pressure 115/73 with a pulse of 99, temperature of 98.2. She is 96% on room air. General description is an elderly female lying in bed in no distress. Respiratory system: Unlabored breathing, decreased intensity of breath sounds. No wheeze. Heart: S1, S2. Regular rate and rhythm. Abdomen: Soft, no tenderness. LABS: No new labs have been obtained today. DIAGNOSTIC IMPRESSION AND PLAN: 1. Patient with admission to the hospital with mental status changes, multifactorial, possible component of in this patient currently covered with Rocephin. Urine has been finalized with E coli sensitive pathogen, finish therapy with oral Ceftin. 2. Patient with a positive Covid test, but the patient is currently on room air. No significant hypoxemia antibodies and plan is to continue with the Lovenox, zinc, ascorbic acid and respiratory support. MMODL / IJN: [id number] /
[2021-01-22] MEDS: ENOXAPARIN 40 MG/0.4 ML SYRINGE SQ SCH (11:08)
[2021-01-22] MEDS: LIDOCAINE 5% PATCH TOPICAL SCH (11:08)
[2021-01-22] MEDS: LOSARTAN 50 MG TAB PO SCH (11:08)
[2021-01-22] MEDS: carvediloL 12.5 MG TAB PO SCH ×2 (11:08→17:06)
[2021-01-22] MEDS: ATORVASTATIN 40 MG TAB PO SCH (11:08)
[2021-01-22] MEDS: ZINC SULFATE 220 MG CAP PO SCH (11:08)
[2021-01-22] MEDS: dexAMETHasone 2 MG TAB PO SCH (11:08)
[2021-01-22] MEDS: ASCORBIC ACID 500 MG TAB PO SCH (11:08)
[2021-01-22] MEDS: AZITHROMYCIN 500 MG in SODIUM CHLORIDE 0.9% 250 ML IVPB SCH ×2 (11:08→18:25)
--- NOTE | 2021-01-22 16:21 | P.PN ---
Subjective Progress Note Date: 01/22/21 Principal diagnosis: Agitated dementia/delirium Acute kidney injury Urinary tract infection COVID-19 infection Mild hypernatremia 01/22/2021, patient seen eval examined resting now less agitated, patient had hard time sleeping last night was agitated, remains afebrile with stable hemodynamics saturation is 95% room air, labs from today reviewed urine culture came back for positive for E. coli 01/21/2021, patient seen eval examined during the rounds labs reviewed medicatio ns reviewed care plan discussed, respiratory status remains stable, patient remains on room air intermittent episodes of anxiety and agitation is seen, sitter at bedside, renal function significantly improved, elevated d-dimer likely related to inflammatory process due to COVID-19 infection, patient remains afebrile oxygen saturation is 96% on room air visible signs of respiratory distress seen This is a 81-year-old with advanced dementia came into emergency department in transfer from [facility] it appears that patient has been found to have COVID-19 pneumonia testing positive for repeat testing in the hospital are pending, if was a week ago she is status post monoclonal antibody infusion on January 15, hemodynamic status stable she's on room air denies any chest pain or shortness of breath, staff in process of obtaining the records, her past medical history is significant for dyslipidemia hypertension hypertensive cardiovascular disease, COPD, there is a history of fall about 2 weeks ago since then she is having some back pain however currently denying it, review of the labs are reviewed normal CBC, sodium is 148, BUN/creatinine was 93/2.7 came down to 67 on 0.47 with gentle rehydration, urine is cloudy with large leukocyte esterase and nitrates many WBC clumps and urine bacteria, culture is pending, computed tomography scan of the pelvis and abdomen significant for dilated common bile duct, adrenal gland lesion 2.4 cm, calculus in the right kidney, no hydronephrosis seen, distal thoracic aneurysm and T12 compression fracture, chest x-rays not done, patient remains on Zithromax and Rocephin, with gentle rehydration and IV fluids 75 mL an hour Objective - Vital Signs Vital signs: Vital Signs Temp 97.6 F 01/22/21 14:00 Pulse 65 01/22/21 14:00 Resp 18 01/22/21 14:00 BP 132/80 01/22/21 14:00 Pulse Ox 95 01/22/21 14:00 Intake & Output 01/21/21 01/22/21 01/22/21 18:59 06:59 18:59 Other: Voiding Method Diaper Diaper Incontinent Incontinent # Voids 1 2 - Exam Constitutional General appearance: average body habitus, cooperative, disheveled - EENT Eyes: PERRLA Ears: bilateral: normal - Neck Neck: normal ROM Carotids: right: upstroke normal Thyroid: bilateral: normal size - Respiratory Respiratory: bilateral: CTA - Cardiovascular Rhythm: regular Heart sounds: normal: S1, S2 - Gastrointestinal General gastrointestinal: normal bowel sounds, soft - Integumentary Integumentary: decreased turgor - Neurologic Neurologic: CNII-XII intact - Musculoskeletal Musculoskeletal: generalized weakness - Labs CBC & Chem 7: 01/20/21 08:21 01/20/21 08:21 Assessment and Plan Assessment: Acute kidney injury E. coli Urinary tract infection COVID-19 infection Agitated dementia and Alzheimer's disease Mild hypernatremia Plan: Agree with gentle hydration and monitor and trend renal functions Antibiotics for urinary tract infection Chest x-ray reviewed cardiomegaly and COPD-like changes are seen mild interstitial prominence could be nonspecific however in light of normal oxygenation will hold on steroids as it may exacerbate her agitation Time with Patient: Greater than 30
[2021-01-22] MEDS: QUEtiapine 25 MG TAB PO SCH (22:26)
[2021-01-23] MEDS: LORazepam 2 MG/ML INJ IV PRN (01:15)
--- NOTE | 2021-01-23 08:00 | PN ---
PROGRESS NOTE DATE OF SERVICE: 01/22/2021. REASON FOR FOLLOWUP: 1. COVID-19 infection. 2. UTI. The patient is afebrile. The patient is breathing comfortably on room air. The patient remains to be lethargic as the patient was up all night and was sleepy. No vomiting or diarrhea reported by nursing staff. PHYSICAL EXAMINATION: Blood pressure 132/80 with a pulse of 85, temperature 97.6. She is 95% on room air. General description is an elderly female lying in bed in no distress. Respiratory system: Unlabored breathing with decreased intensity of breath sounds in the base, with no wheeze. Heart S1, S2. Regular rate and rhythm. Abdomen soft, no tenderness. LABS: Hemoglobin 13.4, white count 6.7, BUN of 44, creatinine 0.8. DIAGNOSTIC IMPRESSION AND PLAN: 1. Patient with COVID-19 infection in this patient with no hypoxemia. Recommend treatment . 2. Patient with an E coli urinary tract infection covered with Rocephin. MMODL / IJN: [id number] /
--- NOTE | 2021-01-23 08:41 | P.PN ---
Subjective Progress Note Date: 01/23/21 Principal diagnosis: COVID-19 pneumonia Agitated dementia/delirium Acute kidney injury Urinary tract infection COVID-19 infection Mild hypernatremia 01/23/2021, patient seen eval examined during the rounds labs reviewed medications reviewed, patient has been intermittently more hypoxic overnight, oxygen saturation requiring 2 L oxygen, currently patient remains afebrile, ox ygen saturation is 91%. Her which is down to 2 L now, plan is to add Decadron and obtain a chest x-ray, patient remains on bicarb drip per recommendation of nephrology 01/22/2021, patient seen eval examined resting now less agitated, patient had hard time sleeping last night was agitated, remains afebrile with stable hemodynamics saturation is 95% room air, labs from today reviewed urine culture came back for positive for E. coli 01/21/2021, patient seen eval examined during the rounds labs reviewed medications reviewed care plan discussed, respiratory status remains stable, patient remains on room air intermittent episodes of anxiety and agitation is seen, sitter at bedside, renal function significantly improved, elevated d-dimer likely related to inflammatory process due to COVID-19 infection, patient remains afebrile oxygen saturation is 96% on room air visible signs of respiratory distress seen This is a 81-year-old with advanced dementia came into emergency department in transfer from [facility] it appears that patient has been found to have COVID-19 pneumonia testing positive for repeat testing in the hospital are pending, if was a week ago she is status post monoclonal antibody infusion on January 15, hemodynamic status stable she's on room air denies any chest pain or shortness of breath, staff in process of obtaining the records, her past medical history is significant for dyslipidemia hypertension hypertensive cardiovascular disease, COPD, there is a history of fall about 2 weeks ago since then she is having some back pain however currently denying it, review of the labs are reviewed normal CBC, sodium is 148, BUN/creatinine was 93/2.7 came down to 67 on 0.47 with gentle rehydration, urine is cloudy with large leukocyte esterase and nitrates many WBC clumps and urine bacteria, culture is pending, computed tomography scan of the pelvis and abdomen significant for dilated common bile duct, adrenal gland lesion 2.4 cm, calculus in the right kidney, no hy dronephrosis seen, distal thoracic aneurysm and T12 compression fracture, chest x-rays not done, patient remains on Zithromax and Rocephin, with gentle rehydration and IV fluids 75 mL an hour Objective - Vital Signs Vital signs: Vital Signs Temp 97.6 F 01/23/21 05:52 Pulse 72 01/23/21 05:52 Resp 18 01/23/21 05:52 BP 135/56 01/23/21 05:52 Pulse Ox 91 L 01/23/21 05:52 Intake & Output 01/22/21 01/23/21 01/23/21 18:59 06:59 18:59 Other: Voiding Method Diaper Diaper Incontinent Incontinent # Voids 2 # Bowel Movements 2 - Exam Constitutional General appearance: average body habitus, cooperative, disheveled - EENT Eyes: PERRLA Ears: bilateral: normal - Neck Neck: normal ROM Carotids: right: upstroke normal Thyroid: bilateral: normal size - Respiratory Respiratory: bilateral: CTA - Cardiovascular Rhythm: regular Heart sounds: normal: S1, S2 - Gastrointestinal General gastrointestinal: normal bowel sounds, soft - Integumentary Integumentary: decreased turgor - Neurologic Neurologic: CNII-XII intact - Musculoskeletal Musculoskeletal: generalized weakness - Labs CBC & Chem 7: 01/20/21 08:21 01/20/21 08:21 Assessment and Plan Assessment: Acute hypoxic respiratory failure covid 19 pneumonia cannot be excluded Acute kidney injury E. coli Urinary tract infection COVID-19 infection Agitated dementia and Alzheimer's disease Mild hypernatremia Plan: Add Decadron 6 mg daily Obtain chest x-ray Trend renal functions however would recommend to limit the IV fluids now Antibiotics for urinary tract infection Time with Patient: Greater than 30
--- NOTE | 2021-01-23 08:50 | PN ---
PROGRESS NOTE 85-year-old female. Remains on azithromycin and Rocephin, zinc and Lovenox, fluids. She has some confusion. Remains on Hexadrol. Which she is sating better. Sat 95% on 3 L. Temperature 97.4, blood pressure 120s over 80s, respiratory 18, pulse 60s. Neurological: Alert, oriented x0. Cardiovascular S1, S2. Hematology: Negative Homans'. Lungs: Decreased breath sounds. Skin poor turgor. White count 6.71, sodium 147, potassium 3.6, BUN is 44, creatinine 0.88. Sugars in the mid 100s. AST is 50, alkaline phosphatase 207, LDH 740, high procalcitonin. Prognosis extremely guarded. Follow up in the next 24 to 48 hours. Continue current treatment. Prognosis extremely guarded due to Covid. MMHANNAHL / IJN: [id number] /
[2021-01-23] MEDS: LIDOCAINE 5% PATCH TOPICAL SCH (09:16)
[2021-01-23] MEDS: AZITHROMYCIN 500 MG in SODIUM CHLORIDE 0.9% 250 ML IVPB SCH (09:16)
[2021-01-23] MEDS: ENOXAPARIN 40 MG/0.4 ML SYRINGE SQ SCH (09:17)
[2021-01-23] MEDS: LOSARTAN 50 MG TAB PO SCH (09:21)
[2021-01-23] MEDS: carvediloL 12.5 MG TAB PO SCH ×2 (09:21→17:33)
[2021-01-23] MEDS: ZINC SULFATE 220 MG CAP PO SCH (09:21)
[2021-01-23] MEDS: ASCORBIC ACID 500 MG TAB PO SCH (09:21)
[2021-01-23] MEDS: ATORVASTATIN 40 MG TAB PO SCH (09:21)
[2021-01-23] MEDS: dexAMETHasone 2 MG TAB PO SCH (09:21)
[2021-01-23 09:35] LABS: Basophils # (A) 0.03 X 10*3/uL (0.00-0.10); Basophils % (A) 0.4 %; Eosinophils # (A) 0.34 X 10*3/uL (0.04-0.35); HCT 36.1 % (37.2-46.3); HGB 11.8 g/dL (12.0-15.0); Lymphocytes # (A) 2.84 X 10*3/uL (0.90-5.00); Lymphocytes % (A) 33.7 %; MCH 30.6 pg (27.0-32.0); MCHC 32.7 g/dL (32.0-37.0); MCV 93.5 fL (80.0-97.0); Mean Platelet Volume 11.2 fL (9.5-12.2); Monocytes # (A) 1.02 X 10*3/uL (0.20-1.00); Monocytes % (A) 12.1 %; Neutrophils # (A) 4.11 X 10*3/uL (1.80-7.70); Neutrophils % (A) 48.7 %; Platelet Count 279 X 10*3/uL (140-440); RBC 3.86 X 10*6/uL (4.10-5.20); RDW 14.1 % (11.5-14.5); WBC 8.43 X 10*3/uL (4.50-10.00)
[2021-01-23 14:52] LABS: African American GFR (CKD) 95.7 (60.0-200.0); Albumin 2.8 g/dL (3.80-4.90); Albumin/Globulin Ratio 1.08 (1.60-3.17); Anion Gap 11.8 mmol/L (4.00-12.00); BUN/Creat Ratio 18.33 Ratio (12.00-20.00); Calcium 7.4 mg/dL (8.7-10.3); Carbon Dioxide 33.2 mmol/L (21.6-31.8); Globulin 2.6 g/dL (1.6-3.3); Magnesium 0.9 mg/dL (1.5-2.4); Non-African American GFR(CKD) 82.5 (60.0-200.0); Potassium 2.6 mmol/L (3.5-5.5); Total Bilirubin 0.5 mg/dL (0.2-1.2); Total Protein 5.4 g/dL (6.2-8.2)
[2021-01-23] MEDS ORDERED: Potassium Replacement Protocol 1 EACH MISC MISCELLANE PRN (15:06)
--- NOTE | 2021-01-23 15:18 | XR ---
EXAMINATION TYPE: XR chest 1V portable DATE OF EXAM: 01/23/2021 COMPARISON: 01/19/2021 INDICATION: Covid pneumonia TECHNIQUE: Single frontal view of the chest is obtained. FINDINGS: The heart size is moderately prominent. The pulmonary vasculature is normal. Scattered peripheral infiltrates are present greater on the left and at the left lung base. Minimal r ight pleural effusion may be present. Findings are nonspecific but can be related to atypical pneumon ia. IMPRESSION: 1. Peripheral infiltrates greatest in left lung base are nonspecific but can be related to atypical p neumonia. 2. Minimal right pleural effusion. 3. Cardiomegaly
[2021-01-23] MEDS ORDERED: Magnesium Replacement Protocol 1 EACH MISC MISCELLANE PRN (16:14)
[2021-01-23] MEDS: POTASSIUM CHLORIDE 10 MEQ in WATER FOR INJECTION 1 100ML.BAG IVPB SCH ×5 (16:21→23:57)
[2021-01-23] MEDS ORDERED: MAGNESIUM SULFATE-D5W PMX 1 GM in DEXTROSE/WATER 1 100ML.BAG IVPB SCH (17:00)
[2021-01-23] MEDS: MAGNESIUM SULFATE-D5W PMX 1 GM in DEXTROSE/WATER 1 100ML.BAG IVPB SCH ×2 (17:02→18:20)
[2021-01-23] MEDS: DEXTROSE 5% IN WATER 1,000 ML with SODIUM BICARB (1 MEQ/ML) 50 ML IV SCH (17:03)
[2021-01-23] MEDS: QUEtiapine 25 MG TAB PO SCH ×2 (21:56→22:08)
--- NOTE | 2021-01-23 23:35 | PN ---
PROGRESS NOTE DATE OF SERVICE: 01/23/2021 REASON FOR FOLLOWUP: 1. Urinary tract infection. 2. Covid-19 infection. INTERVAL HISTORY: Patient is afebrile. The patient is currently breathing comfortably. The patient is hemodynamically stable. The patient remains to be nonverbal and did not provide any history. No vomiting or diarrhea reported by nursing staff. PHYSICAL EXAMINATION: Blood pressure 158/82 with a pulse of 71, temperature 98.7. She is 95% on 2 L nasal cannula. General description is an elderly female lying in bed in no distress. Respiratory system: Unlabored breathing. Decreased intensity of breath sounds, no wheeze. Heart S1, S2. Regular rate and rhythm. Abdomen is soft, no tenderness. LABS: Hemoglobin 11.8, white count 8.43, BUN of 11, creatinine 0.6. IMPRESSION/PLAN: 1. Patient with acute COVID-19 infection. The patient initially was not hypoxic, now requiring supplemental oxygen. Chest x-ray shows perihilar infiltrate, minimal effusion. We will repeat inflammatory markers if any worsening or worsening x-ray findings. May consider for now continue with dexamethasone . 2. Escherichia coli urinary tract infection, covered with Rocephin. MMODL / IJN: [id number] /
[2021-01-24] MEDS: POTASSIUM CHLORIDE 10 MEQ in WATER FOR INJECTION 1 100ML.BAG IVPB SCH ×5 (01:02→20:00)
[2021-01-24] MEDS: DEXTROSE 5% IN WATER 1,000 ML with SODIUM BICARB (1 MEQ/ML) 50 ML IV SCH ×2 (01:02→16:18)
[2021-01-24] MEDS: LORazepam 2 MG/ML INJ IV PRN (04:46)
--- NOTE | 2021-01-24 06:12 | PN ---
PROGRESS NOTE 85-year-old white female with positive Covid, sating 99% on 2 L. She has confusion, severe hypomagnesemia, hypokalemia for which magnesium sulfate, potassium given. Blood pressure is 120s over 70s to 80s. Temp 96-98, respiratory 16-20, pulse 60s to 70s. Cardiovascular S1, S2. Lungs clear. GI soft. Hematology negative Homans. ASSESSMENT: 1. Pneumonia Covid 19. 2. Acute hypoxemic respiratory distress. 3. Urinary tract infection. 4. Delirium. 5. Dementia with behavioral disorder. Chest x-ray showed perihilar infiltrate, minimal effusion. Continue with dexamethasone, Rocephin, E coli UTI. Continue with azithromycin, steroids. Prognosis guarded. MMODL / IJN: [id number] /
[2021-01-24 08:03] LABS: Magnesium 1.7 mg/dL (1.6-2.3); Potassium 3.1 mmol/L (3.5-5.1)
--- NOTE | 2021-01-24 08:41 | P.PN ---
Subjective Progress Note Date: 01/24/21 Principal diagnosis: COVID-19 pneumonia Agitated dementia/delirium Acute kidney injury Urinary tract infection COVID-19 infection Mild hypernatremia 01/24/2021, patient seen eval examined awake but remains confused intermittently agitated, neurology have been consulted for worsening of agitated behavior and dementia, chest x-ray showed interstitial patchy infiltrate consistent with over pneumonia oxygen saturation however have been stable on 2 L into mid 90s, patient remains on Decadron appeared to be tolerating well, also noted hypokalemia hypomagnesemia on replacement protocol, repeat labs are pending 01/23/2021, patient seen eval examined during the rounds labs reviewed medications reviewed, patient has been intermittently more hypoxic overnight, oxygen saturation requiring 2 L oxygen, currently patient remains afebrile, oxygen saturation is 91%. Her which is down to 2 L now, plan is to add Decadron and obtain a chest x-ray, patient remains on bicarb drip per recommendation of nephrology 01/22/2021, patient seen eval examined resting now less agitated, patient had hard time sleeping last night was agitated, remains afebrile with stable hemodynamics saturation is 95% room air, labs from today reviewed urine culture came back for positive for E. coli 01/21/2021, patient seen eval examined during the rounds labs reviewed medications reviewed care plan discussed, respiratory status remains stable, patient remains on room air intermittent episodes of anxiety and agitation is seen, sitter at bedside, renal function significantly improved, elevated d-dimer likely related to inflammatory process due to COVID-19 infection, patient remains afebrile oxygen saturation is 96% on room air visible signs of respiratory distress seen This is a 81-year-old with advanced dementia came into emergency department in transfer from [facility] it appears that patient has been found to have COVID-19 pneumonia testing positive for repeat testing in the hospital are pending, if was a week ago she is status post monoclonal antibody infusion on January 15, hemodynamic status stable she's on room air denies any chest pain or shortness of breath, staff in process of obtaining the records, her past medical history is significant for dyslipidemia hypertension hypertensive cardiovascular disease, COPD, there is a history of fall about 2 weeks ago since then she is having some back pain however currently denying it, review of the labs are reviewed normal CBC, sodium is 148, BUN/creatinine was 93/2.7 came down to 67 on 0.47 with gentle rehydration, urine is cloudy with large leukocyte esterase and nitrates many WBC clumps and urine bacteria, culture is pending, computed tomography scan of the pelvis and abdomen significant for dilated common bile duct, adrenal gland lesion 2.4 cm, calculus in the right kidney, no hydronephrosis seen, distal thoracic aneurysm and T12 compression fracture, chest x-rays not done, patient remains on Zithromax and Rocephin, with gentle rehydration and IV fluids 75 mL an hour Objective - Vital Signs Vital signs: Vital Signs Temp 98.3 F 01/24/21 06:00 Pulse 65 01/24/21 06:00 Resp 19 01/24/21 06:00 BP 112/74 01/24/21 06:00 Pulse Ox 93 L 01/24/21 06:00 Intake & Output 01/23/21 01/24/21 01/24/21 18:59 06:59 18:59 Other: Voiding Method Diaper Incontinent # Voids 1 1 - Exam Constitutional General appearance: average body habitus, cooperative, disheveled - EENT Eyes: PERRLA Ears: bilateral: normal - Neck Neck: normal ROM Carotids: right: upstroke normal Thyroid: bilateral: normal size - Respiratory Respiratory: bilateral: CTA - Cardiovascular Rhythm: regular Heart sounds: normal: S1, S2 - Gastrointestinal General gastrointestinal: normal bowel sounds, soft - Integumentary Integumentary: decreased turgor - Neurologic Neurologic: CNII-XII intact - Musculoskeletal Musculoskeletal: generalized weakness - Labs CBC & Chem 7: 01/23/21 05:34 01/24/21 07:30 Labs: Abnormal Lab Results - Last 24 Hours (Table) 01/23/21 01/23/21 01/24/21 Range/Units 05:34 05:34 07:30 RBC 3.86 L (4.10-5.20) X 10*6/uL Hgb 11.8 L (12.0-15.0) g/dL Hct 36.1 L (37.2-46.3) % Immature Gran # 0.09 H (0.00-0.04) X 10*3/uL Monocytes # 1.02 H (0.20-1.00) X 10*3/uL Potassium 2.6 L* 3.1 L (3.5-5.5) mmol/L Chloride 95 L (96-109) mmol/L Carbon Dioxide 33.2 H (21.6-31.8) mmol/L Glucose 147 H (70-110) mg/dL Calcium 7.4 L (8.7-10.3) mg/dL Magnesium 0.9 L* (1.5-2.4) mg/dL Total Protein 5.4 L (6.2-8.2) g/dL Albumin 2.80 L (3.80-4.90) g/dL Albumin/Globulin Ratio 1.08 L (1.60-3.17) g/dL Assessment and Plan Assessment: Acute hypoxic respiratory failure covid 19 pneumonia Electrolyte imbalance with severe hypokalemia and hypomagnesemia Acute kidney injury E. coli Urinary tract infection COVID-19 infection Agitated dementia and Alzheimer's disease Mild hypernatremia Plan: Continue Decadron 6 mg daily for 10 days Obtain chest x-ray Trend renal functions however would recommend to limit the IV fluids now Antibiotics for urinary tract infection Replace magnesium and potassium Time with Patient: Greater than 30
[2021-01-24] MEDS: ATORVASTATIN 40 MG TAB PO SCH (08:51)
[2021-01-24] MEDS: carvediloL 12.5 MG TAB PO SCH ×2 (08:51→15:32)
[2021-01-24] MEDS: ZINC SULFATE 220 MG CAP PO SCH (08:51)
[2021-01-24] MEDS: LOSARTAN 50 MG TAB PO SCH (08:51)
[2021-01-24] MEDS: dexAMETHasone 2 MG TAB PO SCH (08:51)
[2021-01-24] MEDS: ASCORBIC ACID 500 MG TAB PO SCH (08:51)
[2021-01-24] MEDS: LIDOCAINE 5% PATCH TOPICAL SCH (08:56)
[2021-01-24] MEDS: AZITHROMYCIN 500 MG in SODIUM CHLORIDE 0.9% 250 ML IVPB SCH (08:56)
[2021-01-24] MEDS: ENOXAPARIN 40 MG/0.4 ML SYRINGE SQ SCH (08:56)
[2021-01-24 15:04] VITALS: BMI 23.6
--- NOTE | 2021-01-24 16:48 | PN ---
PROGRESS NOTE DATE OF SERVICE: 01/24/2021 REASON FOR FOLLOWUP: Covid 19 infection, UTI. INTERVAL HISTORY: Patient is afebrile. The patient seems slightly restless today. Trying to take off her oxygen. No worsening cough. No vomiting or diarrhea per the nursing staff. The patient herself was unable to provide any history. PHYSICAL EXAMINATION: Blood pressure 107/63, pulse 71, temperature 99. She is 91% on room air. General description is an elderly female lying in bed in no distress. Respiratory system: Unlabored breathing, decreased intensity of breath sounds. Heart S1, S2. Regular rate and rhythm. Abdomen: Soft, no tenderness. LABS: Potassium is 3.1. Mag is 1.7. DIAGNOSTIC IMPRESSION AND PLAN: 1. Patient with acute COVID-19 infection in this patient currently on Lovenox, dexamethasone, zinc, ascorbic acid along with respiratory support. 2. E. coli urinary tract infection. To continue with Rocephin. Finish therapy with oral antibiotics. MMODL / IJN: [id number] /
[2021-01-24] MEDS: QUEtiapine 25 MG TAB PO SCH (20:01)
[2021-01-24] MEDS: ACETAMINOPHEN IV (For NPO) 650 MG in EMPTY BAG 1 BAG IVPB PRN (21:26)
--- NOTE | 2021-01-25 01:45 | PN ---
PROGRESS NOTE SUBJECTIVE: An 85-year-old white female Covid 19 pneumonia, agitated delirium, dementia, acute kidney injury, urinary tract infection, Covid 19 infection, hyponatremia, remains confused and agitated. Neurology is consulted for behavior and dementia. Chest x-ray shows patchy infiltrate with pneumonia. On 2 L in the mid 90s oxygen. hypokalemia, hypomagnesemia on protocol to replace it. Vital signs are reviewed. Neurologic: Alert, oriented x0. Cardiovascular: S1-S2. Lungs: Scattered rhonchi and wheeze x4. Hematology: Negative Homans. ASSESSMENT: 1. Acute hypoxemic respiratory failure. 2. Covid 19 pneumonia. 3. Electrolyte imbalance. 4. Hypokalemia. 5. Hypomagnesemia. 6. Acute kidney injury. 7. E coli urinary tract infection. 8. Covid 19 infection. 9. Agitated dementia and Alzheimer's. Decadron 6 mg daily for 10 days, chest x-ray, IV fluids, antibiotics for UTI, replacement potassium. Get neurology consult. Prognosis guarded. MMODL / IJN: [id number] /
[2021-01-25] MEDS: DEXTROSE 5% IN WATER 1,000 ML with SODIUM BICARB (1 MEQ/ML) 50 ML IV SCH (07:27)
[2021-01-25 07:37] LABS: Basophils # (A) 0.1 k/uL (0-0.2); Basophils % (A) 1 %; Eosinophils # (A) 0.2 k/uL (0-0.7); Eosinophils % (A) 3 %; HGB 11.6 gm/dL (11.4-16.0); Lymphocytes # (A) 1.8 k/uL (1.0-4.8); Lymphocytes % (A) 20 %; MCH 30.7 pg (25.0-35.0); MCHC 32.1 g/dL (31.0-37.0); Mean Platelet Volume 8.1; Monocytes # (A) 0.8 k/uL (0-1.0); Monocytes % (A) 9 %; Neutrophils # (A) 5.9 k/uL (1.3-7.7); Neutrophils % (A) 66 %; Platelet Count 224 k/uL (150-450); RBC 3.77 m/uL (3.80-5.40); RDW 14.4 % (11.5-15.5)
[2021-01-25 07:45] LABS: MCV 95.5 fL (80.0-100.0)
[2021-01-25 07:48] LABS: ALT 14 U/L (4-34); AST 24 U/L (14-36); African American GFR (CKD) >90 (>60 ml/min/1.73 sqM); Albumin 2.5 g/dL (3.5-5.0); Albumin/Globulin Ratio 0.9; Alkaline Phosphatase 122 U/L (38-126); Anion Gap 3 mmol/L; Blood Urea Nitrogen 7 mg/dL (7-17); Calcium 7.8 mg/dL (8.4-10.2); Carbon Dioxide 39 mmol/L (22-30); Chloride 93 mmol/L (98-107); Globulin 2.7 g/dL; Glucose 143 mg/dL (74-99); Non-African American GFR(CKD) >90 (>60 ml/min/1.73 sqM); Potassium 3.1 mmol/L (3.5-5.1); Sodium 135 mmol/L (137-145); Total Bilirubin 0.6 mg/dL (0.2-1.3); Total Protein 5.2 g/dL (6.3-8.2)
[2021-01-25] MEDS: LOSARTAN 50 MG TAB PO SCH ×2 (08:06→08:20)
[2021-01-25] MEDS: LIDOCAINE 5% PATCH TOPICAL SCH ×2 (08:06→13:21)
[2021-01-25] MEDS: carvediloL 12.5 MG TAB PO SCH ×3 (08:06→17:27)
[2021-01-25] MEDS: dexAMETHasone 2 MG TAB PO SCH ×2 (08:06→08:16)
[2021-01-25] MEDS: POTASSIUM CHLORIDE 10 MEQ in WATER FOR INJECTION 1 100ML.BAG IVPB SCH ×5 (08:06→15:05)
[2021-01-25] MEDS: ENOXAPARIN 40 MG/0.4 ML SYRINGE SQ SCH ×2 (08:14→08:16)
[2021-01-25] MEDS: ZINC SULFATE 220 MG CAP PO SCH (08:14)
[2021-01-25] MEDS: ASCORBIC ACID 500 MG TAB PO SCH (08:14)
[2021-01-25] MEDS: ATORVASTATIN 40 MG TAB PO SCH (08:14)
[2021-01-25] MEDS: AZITHROMYCIN 500 MG in SODIUM CHLORIDE 0.9% 250 ML IVPB SCH (11:00)
--- NOTE | 2021-01-25 21:45 | PN ---
PROGRESS NOTE DATE OF SERVICE: 01/25/2021 REASON FOR FOLLOWUP: 1. Covid 19 pneumonia. 2. UTI. INTERVAL HISTORY: Patient is afebrile. The patient remains to be lethargic and unable to provide any history. Currently on room air. No vomiting, diarrhea or other changes reported by the sitter at the bedside. PHYSICAL EXAMINATION: Blood pressure 123/74 with a pulse of 108, temperature 97.1. She is 94% on room air. General description is an elderly female lying in bed in no distress. Respiratory system: Unlabored breathing, clear to auscultation anteriorly. Heart S1, S2. Regular rate and rhythm. Abdomen: Soft, no tenderness. Extremities: No edema of the feet. LABS: Hemoglobin is 11.9, white count 9.0, BUN of 7, creatinine 0.45. IMPRESSION/PLAN: 1. Patient with COVID-19 pneumonia. Patient is currently being treated with Lovenox, dexamethasone, zinc and ascorbic acid to continue. 2. E coli urinary tract infection, covered with Rocephin transition to oral antibiotic on discharge and continue supportive care. MMODL / IJN: [id number] /
[2021-01-25] MEDS: QUEtiapine 25 MG TAB PO SCH (22:24)
--- NOTE | 2021-01-25 23:32 | PN ---
PROGRESS NOTE 85-year-old white female who has Covid encephalopathy, not eating and drinking, she will have to go and possible hospice care tomorrow over to the assisted. Remains on the Hexadrol, carvedilol, Rocephin, Azithromycin, possibly stop her steroids as this could be causing possible hallucinations also. Continue to give her current treatment until we give her some nutrition. Cardiovascular S1-S2. Lungs mild wheeze x4. HEMATOLOGY: Negative Homans. PSYCH: Fair mood and affect. LABS: Are reviewed. Sodium is 135, potassium 3.1 white count, normal BUN and creatinine 7 and 0.45, calcium 7.8. Prognosis guarded. Follow up next 24 to 48 hours for possible palliative hospice discussion. MMODL / IJN: [id number] /
[2021-01-25] MEDS: ACETAMINOPHEN IV (For NPO) 650 MG in EMPTY BAG 1 BAG IVPB PRN (23:50)
[2021-01-26 07:58] LABS: ALT 12 U/L (4-34); AST 24 U/L (14-36); African American GFR (CKD) >90 (>60 ml/min/1.73 sqM); Albumin 2.1 g/dL (3.5-5.0); Albumin/Globulin Ratio 0.8; Alkaline Phosphatase 125 U/L (38-126); Anion Gap 4 mmol/L; Blood Urea Nitrogen 5 mg/dL (7-17); Calcium 7.7 mg/dL (8.4-10.2); Carbon Dioxide 29 mmol/L (22-30); Chloride 102 mmol/L (98-107); Globulin 2.8 g/dL; Glucose 110 mg/dL (74-99); Non-African American GFR(CKD) >90 (>60 ml/min/1.73 sqM); Potassium 2.9 mmol/L (3.5-5.1); Sodium 135 mmol/L (137-145); Total Bilirubin 0.4 mg/dL (0.2-1.3); Total Protein 4.9 g/dL (6.3-8.2)
[2021-01-26] MEDS: DEXTROSE 5% IN WATER 1,000 ML with SODIUM BICARB (1 MEQ/ML) 50 ML IV SCH ×3 (08:04→22:15)
[2021-01-26] MEDS: ZINC SULFATE 220 MG CAP PO SCH (08:04)
[2021-01-26] MEDS: ASCORBIC ACID 500 MG TAB PO SCH (08:04)
[2021-01-26] MEDS: dexAMETHasone 2 MG TAB PO SCH (08:04)
[2021-01-26] MEDS: carvediloL 12.5 MG TAB PO SCH (08:04)
[2021-01-26] MEDS: LOSARTAN 50 MG TAB PO SCH (08:04)
[2021-01-26] MEDS: LIDOCAINE 5% PATCH TOPICAL SCH (08:04)
[2021-01-26] MEDS: ATORVASTATIN 40 MG TAB PO SCH (08:04)
[2021-01-26] MEDS: ENOXAPARIN 40 MG/0.4 ML SYRINGE SQ SCH (08:09)
[2021-01-26] MEDS: POTASSIUM CHLORIDE 10 MEQ in WATER FOR INJECTION 1 100ML.BAG IVPB SCH ×6 (08:09→16:23)
[2021-01-26] MEDS: AZITHROMYCIN 500 MG in SODIUM CHLORIDE 0.9% 250 ML IVPB SCH (09:28)
--- NOTE | 2021-01-26 09:44 | P.CNNES ---
History of Present Illness Consult date: 01/25/21 Requesting physician: William Green Reason for Consult: New onset confusion History of Present Illness: Patient is a 85-year-old female, resident of [facility], came to the hospital by ambulance on 01/18/2021 for diarrhea. She was diagnosed with Covid the week prior and was given monoclonal antibodies on 01/15/2021. Patient has been diagnosed with acute kidney injury, UTI along with above. She has been noted to be confused intermittently agitated. Neurology has been consulted for worsening of agitation did behavior and dementia. Chest x-ray showed interstitial patchy infiltrate consistent with pneumonia. Patient not able to provide any history. Patient does have dementia, does not communicate much. Nurses have reported that anywhere you touch, she starts crying in pain. Patient had suffered from a fall on 01/18/2021, but did not hit her head. Patient's daughter has reported to the nurse that she was able to live on her own, but at this point she is not able to. Patient gets irritable, agitated, starts kicking, combative, biting trying to pull every thing out, trying to take people on the face. She was placed on soft mitten restraint. No focal symptoms have been reported. No seizure-like activity. The sitter who was present, has been present since 6:30, and patient just has been sleeping. On arrival, her blood test shows BUN 93, creatinine 2.71. It subsequently improved to 67 and 1.67, and then subsequently normalized. Patient was probably dehydrated. Most recent blood test shows normal WBC 8.4, hemoglobin 11.8 and platelets are 279. Sodium is 140, potassium 2.6 and normal renal functions. Patient's sodium yesterday was 147. Hepatic panel are normal. UA shows positiv e nitrite, large amount of leukocyte esterase. Urine cultures have grown greater than 100,000 of E. coli. Chest x-ray showed peripheral infiltrates greatest in the left lung base are nonspecific, but can be related to atypical pneumonia. Minimal right pleural effusion. Cardiomegaly. Patient's last hemoglobin A1c 8.0 on 06/15/2020. Review of Systems ROS unobtainable: due to mental status Past Medical History Past Medical History: COPD, Dementia, Diabetes Mellitus, Eye Disorder, Hyperlipidemia, Hypertension, Pneumonia Additional Past Medical History / Comment(s): Pt fell about 2 weeks ago and has had back pain since and not moving around, diabetes-no longer on any medications, cataract/laterallity unknown, occasional incontinence. History of Any Multi-Drug Resistant Organisms: None Reported Past Surgical History: Section, Orthopedic Surgery, Pacemaker Additional Past Surgical History / Comment(s): Cataract removal/laterallity unknown. Past Anesthesia/Blood Transfusion Reactions: No Reported Reaction Type of Cardiac Device: Permanent Pacemaker Device Placement Date:: June 2019 Past Psychological History: Anxiety, Depression Additional Psychological History / Comment(s): Pt resides alone. Shantelle Phillips, states they are currently moving her belongings into [facility], family is no longer able to care for pt, pt refuses some of their attempts. Daughters manage pts medications and cook for her. Pt has been ambulating very little past 2 weeks since falling. Smoking Status: Former smoker Past Alcohol Use History: None Reported Additional Past Alcohol Use History / Comment(s): Pt started smoking as a teen and quit approximately a month ago. She quit off and on over the years. Past Drug Use History: None Reported - Past Family History Father History Unknown: Yes Additional Family Medical History / Comment(s): Jacqueline states she does not know history Mother History Unknown: Yes Additional Family Medical History / Comment(s): Jacqueline states she does not know history. Medications and Allergies Home Medications Medication Instructions Recorded Confirmed Type Atorvastatin [Lipitor] 40 mg PO DAILY 06/13/20 01/18/21 History Carvedilol [Coreg] 12.5 mg PO BID 06/13/20 01/18/21 History Losartan Potassium 100 mg PO DAILY 06/13/20 01/18/21 History Allergies Allergy/AdvReac Type Severity Reaction Status Date / Time Sulfa (Sulfonamide Allergy Anaphylaxis Verified 01/18/21 17:18 Antibiotics) Physical Examination - Vital Signs Vital Signs: Vital Signs Temp Pulse Resp BP Pulse Ox 01/24/21 06:00 98.3 F 65 19 112/74 93 L 01/24/21 02:00 98.4 F 111 H 18 146/93 94 L 01/23/21 21:55 98.4 F 68 19 145/73 99 01/23/21 19:24 20 01/23/21 18:33 98.7 F 61 20 150/82 95 01/23/21 14:03 98.7 F 61 20 150/82 95 Intake and Output 01/23/21 01/24/21 01/24/21 22:59 06:59 14:59 Other: Voiding Method Diaper Incontinent # Voids 1 1 Patient is an elderly female, laying comfortably in the bed. Patient is sleeping. Patient would moan and groan on touching any part of her body. She is moving all 4 extremities equally. Limited speech appeared normal, with n o aphasia or dysarthria. Attention, concentration and fund of knowledge is significantly limited. On cranial examination, pupils are round, appears to have some lenticular opacity. Patient did not let me check for pupillary reactivity. Visual martínez could not be tested, extraocular muscles appears intact although patient did not cooperate. Face is symmetric, tongue could not be tested. Palatal elevation and sensation could not be tested, hearing and shoulder shrug and facial sensations could not be tested. On muscle strength testing, patient did not cooperate. When the arms are manually lift it, patient brings them down equally, with no focal weakness noted. Deep tendon reflexes are hypoactive and plantars withdrawal. Sensory to touch elicits pain on either sides equally, overall very tender to touch. Cerebellar function could not be tested. Tone is equal. Gait not checked.. On general examination, there is no carotid bruit or murmur, S1-S2 audible. Abdomen is soft nontender. Chest is clear. Peripheral pulses are present. No edema. Results - Laboratory Findings CBC and BMP: 01/26/21 07:24 01/26/21 07:24 Abnormal Lab Findings: Abnormal Labs 01/18/21 01/18/21 01/19/21 17:33 19:14 07:18 RBC Hgb Hct MCV MCHC Immature Gran # Lymphocytes # Monocytes # D-Dimer Sodium 148 H Potassium Chloride 109 H 115 H Carbon Dioxide 16 L 19 L BUN 93 H 67 H Creatinine 2.71 H 1.47 H Glucose 117 H 124 H POC Glucose (mg/dL) Calcium Magnesium AST 77 H Alkaline Phosphatase 245 H Lactate Dehydrogenase C-Reactive Protein Total Protein Albumin Albumin/Globulin Ratio Amylase 135 H Lipase 319 H Procalcitonin Urine Appearance Cloudy H Urine Protein Trace H Urine Ketones Trace H Urine Blood Small H Urine Nitrite Positive H Ur Leukocyte Esterase Large H Urine WBC 92 H Urine WBC Clumps Many H Urine Bacteria Many H Hyaline Casts 9 H Urine Mucus Rare H Coronavirus (PCR) 01/19/21 01/19/21 01/19/21 07:18 07:18 11:50 RBC Hgb Hct MCV MCHC Immature Gran # Lymphocytes # Monocytes # D-Dimer Sodium Potassium Chloride Carbon Dioxide BUN Creatinine Glucose POC Glucose (mg/dL) Calcium Magnesium AST Alkaline Phosphatase Lactate Dehydrogenase 740 H C-Reactive Protein 5.3 H Total Protein Albumin Albumin/Globulin Ratio Amylase Lipase Procalcitonin 0.13 H Urine Appearance Urine Protein Urine Ketones Urine Blood Urine Nitrite Ur Leukocyte Esterase Urine WBC Urine WBC Clumps Urine Bacteria Hyaline Casts Urine Mucus Coronavirus (PCR) Detected A 01/19/21 01/20/21 01/20/21 12:56 08:21 08:21 RBC Hgb Hct MCV 106.7 H D MCHC 30.6 L Immature Gran # Lymphocytes # 0.7 L Monocytes # D-Dimer 2.01 H Sodium 147 H Potassium Chloride 117 H Carbon Dioxide 15 L BUN 44 H Creatinine Glucose 176 H POC Glucose (mg/dL) Calcium Magnesium AST 50 H Alkaline Phosphatase 207 H Lactate Dehydrogenase C-Reactive Protein Total Protein Albumin Albumin/Globulin Ratio Amylase Lipase Procalcitonin Urine Appearance Urine Protein Urine Ketones Urine Blood Urine Nitrite Ur Leukocyte Esterase Urine WBC Urine WBC Clumps Urine Bacteria Hyaline Casts Urine Mucus Coronavirus (PCR) 01/21/21 01/23/21 01/23/21 06:51 05:34 05:34 RBC 3.86 L Hgb 11.8 L Hct 36.1 L MCV MCHC Immature Gran # 0.09 H Lymphocytes # Monocytes # 1.02 H D-Dimer Sodium Potassium 2.6 L* Chloride 95 L Carbon Dioxide 33.2 H BUN Creatinine Glucose 147 H POC Glucose (mg/dL) 156 H Calcium 7.4 L Magnesium 0.9 L* AST Alkaline Phosphatase Lactate Dehydrogenase C-Reactive Protein Total Protein 5.4 L Albumin 2.80 L Albumin/Globulin Ratio 1.08 L Amylase Lipase Procalcitonin Urine Appearance Urine Protein Urine Ketones Urine Blood Urine Nitrite Ur Leukocyte Esterase Urine WBC Urine WBC Clumps Urine Bacteria Hyaline Casts Urine Mucus Coronavirus (PCR) 01/24/21 07:30 RBC Hgb Hct MCV MCHC Immature Gran # Lymphocytes # Monocytes # D-Dimer Sodium Potassium 3.1 L Chloride Carbon Dioxide BUN Creatinine Glucose POC Glucose (mg/dL) Calcium Magnesium AST Alkaline Phosphatase Lactate Dehydrogenase C-Reactive Protein Total Protein Albumin Albumin/Globulin Ratio Amylase Lipase Procalcitonin Urine Appearance Urine Protein Urine Ketones Urine Blood Urine Nitrite Ur Leukocyte Esterase Urine WBC Urine WBC Clumps Urine Bacteria Hyaline Casts Urine Mucus Coronavirus (PCR) Assessment and Plan Assessment: * Altered mental status likely due to toxic metabolic encephalopathy * Status post acute kidney injury, now resolved. * Acute E. coli UTI * Covid-19 related pneumonia. Chest x-ray showing peripheral infiltrates greatest in the left lung base, Cardiomegaly. * Hyponatremia, hypokalemia * Underlying dementia. * Diabetes * Hypertension Plan: * Patient's limited examination is nonfocal. * Treatment of medical conditions as per IM and other specialties. * Hopefully her encephalopathy will improve once other medical conditions, under control. * We will check B12, folate, TSH and hemoglobin A1c * No other workup indicated. * We will follow.
[2021-01-26 10:48] LABS: Basophils # (A) 0.05 X 10*3/uL (0.00-0.10); Basophils % (A) 0.8 %; Eosinophils # (A) 0.29 X 10*3/uL (0.04-0.35); Eosinophils % (A) 4.4 %; HCT 32.8 % (37.2-46.3); HGB 10.7 g/dL (12.0-15.0); Lymphocytes # (A) 1.98 X 10*3/uL (0.90-5.00); Lymphocytes % (A) 29.9 %; MCH 31.2 pg (27.0-32.0); MCHC 32.6 g/dL (32.0-37.0); MCV 95.6 fL (80.0-97.0); Mean Platelet Volume 10.5 fL (9.5-12.2); Monocytes # (A) 0.93 X 10*3/uL (0.20-1.00); Neutrophils # (A) 3.34 X 10*3/uL (1.80-7.70); Neutrophils % (A) 50.3 %; Platelet Count 203 X 10*3/uL (140-440); RBC 3.43 X 10*6/uL (4.10-5.20); RDW 14.5 % (11.5-14.5); WBC 6.63 X 10*3/uL (4.50-10.00)
--- NOTE | 2021-01-26 15:35 | PN ---
PROGRESS NOTE 85-year-old white female who is admitted for Covid encephalopathy to Covid treatment dehydration, prerenal renal insufficiency. She was seen. She is pretty much alert, oriented x0, not cooperating, not eating and drinking. Labs reviewed. Severe has potassium and magnesium, which has been replaced being replaced through the IV. He has altered mental status. Cardiovascular S1-S2. Lungs decreased breath sounds. Neurologic: Alert, oriented x0. ASSESSMENT: 1. E coli UTI, Covid 19 related pneumonia. 2. Hyponatremia. 3. Hypokalemia. 4. Dementia. 5. Diabetes. 6. Hypertension. 7. Metabolic encephalopathy versus possible steroid treatment. Possibly will cut down her steroids and check her B12, folic acid, thyroid, hemoglobin A1c. Prognosis guarded. Please see further orders. MMODL / IJN: [id number] /
[2021-01-26 17:18] LABS: Hemoglobin A1C 6.7 % (4.0-6.0)
--- NOTE | 2021-01-26 18:41 | PN ---
PROGRESS NOTE DATE OF SERVICE: 01/26/2021 REASON FOR FOLLOW UP: 1. Covid 19 infection. 2. UTI. INTERVAL HISTORY: Patient is afebrile. The patient remains to be pleasantly confused, but not agitated. She is currently on room air, sating 94%. No worsening cough, sputum production or vomiting reported by the nursing staff. PHYSICAL EXAMINATION: Blood pressure is 132/74 with a pulse of 83, temperature is 98.7. She is 94% on room air. General description is an elderly female lying in bed in no distress. Respiratory system: Unlabored breathing, decreased breath sounds in the base. No wheeze. Heart S1, S2. Regular rate and rhythm. Abdomen soft, no tenderness. LABORATORY DATA: Hemoglobin is 10.7, white count 6.6. BUN of 5, creatinine 0.45. DIAGNOSTIC IMPRESSION AND PLAN: 1. Patient with acute COVID-19 infection in this patient who seemed to be doing well. Currently on room air. Continue with symptomatic treatment. No need for any antiviral. 2. Patient with E coli urinary tract infection covered with Rocephin and received adequate antibiotic and can be discontinued on discharge. MMODL / IJN: [id number] /
[2021-01-26 20:27] LABS: Glucose,Whole Blood 93 mg/dL (75-99)
[2021-01-26] MEDS: QUEtiapine 25 MG TAB PO SCH (22:05)
[2021-01-27 07:33] LABS: Glucose,Whole Blood 112 mg/dL (75-99)
[2021-01-27 08:37] LABS: Basophils # (A) 0.1 k/uL (0-0.2); Basophils % (A) 1 %; Eosinophils # (A) 0.3 k/uL (0-0.7); Eosinophils % (A) 4 %; HCT 36.9 % (34.0-46.0); Lymphocytes # (A) 1.9 k/uL (1.0-4.8); Lymphocytes % (A) 22 %; MCH 31.6 pg (25.0-35.0); MCHC 32.4 g/dL (31.0-37.0); MCV 97.4 fL (80.0-100.0); Mean Platelet Volume 7.9; Monocytes # (A) 0.6 k/uL (0-1.0); Monocytes % (A) 7 %; Neutrophils # (A) 5.4 k/uL (1.3-7.7); Neutrophils % (A) 64 %; Platelet Count 189 k/uL (150-450); RBC 3.79 m/uL (3.80-5.40); RDW 14.4 % (11.5-15.5); WBC 8.4 k/uL (3.8-10.6)
[2021-01-27] MEDS: carvediloL 12.5 MG TAB PO SCH ×2 (08:53→16:35)
[2021-01-27] MEDS: ZINC SULFATE 220 MG CAP PO SCH (08:53)
[2021-01-27] MEDS: LOSARTAN 50 MG TAB PO SCH (08:53)
[2021-01-27] MEDS: ASCORBIC ACID 500 MG TAB PO SCH (08:53)
[2021-01-27] MEDS: dexAMETHasone 2 MG TAB PO SCH (08:53)
[2021-01-27] MEDS: ATORVASTATIN 40 MG TAB PO SCH (08:53)
[2021-01-27] MEDS: ENOXAPARIN 40 MG/0.4 ML SYRINGE SQ SCH (08:56)
[2021-01-27] MEDS: LIDOCAINE 5% PATCH TOPICAL SCH (08:56)
[2021-01-27 09:03] LABS: ALT 12 U/L (4-34); AST 27 U/L (14-36); African American GFR (CKD) >90 (>60 ml/min/1.73 sqM); Albumin 2.5 g/dL (3.5-5.0); Albumin/Globulin Ratio 0.9; Alkaline Phosphatase 179 U/L (38-126); Anion Gap 6 mmol/L; Blood Urea Nitrogen 4 mg/dL (7-17); Calcium 8.2 mg/dL (8.4-10.2); Carbon Dioxide 26 mmol/L (22-30); Chloride 102 mmol/L (98-107); Globulin 2.9 g/dL; Glucose 120 mg/dL (74-99); Magnesium 1.2 mg/dL (1.6-2.3); Non-African American GFR(CKD) >90 (>60 ml/min/1.73 sqM); Potassium 3.6 mmol/L (3.5-5.1); Sodium 134 mmol/L (137-145); Total Bilirubin 0.7 mg/dL (0.2-1.3); Total Protein 5.4 g/dL (6.3-8.2)
[2021-01-27] MEDS ORDERED: Magnesium Replacement Protocol 1 EACH MISC MISCELLANE PRN (09:11)
--- NOTE | 2021-01-27 09:55 | P.PN ---
Subjective Progress Note Date: 01/27/21 Principal diagnosis: COVID-19 pneumonia Agitated dementia/delirium Acute kidney injury Urinary tract infection COVID-19 infection Mild hypernatremia 01/25/2021, patient seen eval reexamined during the rounds on room air now intermittently confused and agitated overall no significant changes seen, patient seen eval for hospice and comfort care 01/24/2021, patient seen eval examined awake but remains confused intermittently agitated, neurology have been consulted for worsening of agitated behavior and dementia, chest x-ray showed interstitial patchy infiltrate consistent with over pneumonia oxygen saturation however have been stable on 2 L into mid 90s, patient remains on Decadron appeared to be tolerating well, also noted hypokalemia hypomagnesemia on replacement protocol, repeat labs are pending 01/23/2021, patient seen eval examined during the rounds labs reviewed medications reviewed, patient has been intermittently more hypoxic overnight, oxygen saturation requiring 2 L oxygen, currently patient remains afebrile, oxygen saturation is 91%. Her which is down to 2 L now, plan is to add Decadron and obtain a chest x-ray, patient remains on bicarb drip per recommendation of nephrology 01/22/2021, patient seen eval examined resting now less agitated, patient had hard time sleeping last night was agitated, remains afebrile with stable hemodynamics saturation is 95% room air, labs from today reviewed urine culture came back for positive for E. coli 01/21/2021, patient seen eval examined during the rounds labs reviewed medications reviewed care plan discussed, respiratory status remains stable, patient remains on room air intermittent episodes of anxiety and agitation is seen, sitter at bedside, renal function significantly improved, elevated d-dimer likely related to inflammatory process due to COVID-19 infection, patient remains afebrile oxygen saturation is 96% on room air visible signs of respiratory distress seen This is a 81-year-old with advanced dementia came into emergency department in transfer from [facility] it appears that patient has been found to have COVID-19 pneumonia testing positive for repeat testing in the hospital are pending, if was a week ago she is status post monoclonal antibody infusion on January 15, hemodynamic status stable she's on room air denies any chest pain or shortness of breath, staff in process of obtaining the records, her past medical history is significant for dyslipidemia hypertension hypertensive cardiovascular disease, COPD, there is a history of fall about 2 weeks ago since then she is having some back pain however currently denying it, review of the labs are reviewed normal CBC, sodium is 148, BUN/creatinine was 93/2.7 came down to 67 on 0.47 with gentle rehydration, urine is cloudy with large leukocyte esterase and nitrates many WBC clumps and urine bacteria, culture is pending, computed tomography scan of the pelvis and abdomen significant for dilated common bile duct, adrenal gland lesion 2.4 cm, calculus in the right kidney, no hydronephrosis seen, distal thoracic aneurysm and T12 compression fracture, chest x-rays not done, patient remains on Zithromax and Rocephin, with gentle rehydration and IV fluids 75 mL an hour Objective - Vital Signs Vital signs: Vital Signs Temp 96.7 F L 01/27/21 09:44 Pulse 73 01/27/21 09:44 Resp 19 01/27/21 09:44 BP 144/76 01/27/21 09:44 Pulse Ox 92 L 01/27/21 09:44 Intake & Output 01/26/21 01/27/21 01/27/21 18:59 06:59 18:59 Intake Total 900 Balance 900 Weight 49.442 kg Intake: Intake, IV Titration 900 Amount Dextrose 5% in Water 1, 900 000 ml @ 75 mls/hr IV . Q14H LEXI with Sodium Bicarb (1 Meq/ml) 50 ml Rx#:[id number] Other: Voiding Method Diaper Diaper # Voids 5 4 # Bowel Movements 3 4 - Exam Constitutional General appearance: average body habitus, cooperative, disheveled - EENT Eyes: PERRLA Ears: bilateral: normal - Neck Neck: normal ROM Carotids: right: upstroke normal Thyroid: bilateral: normal size - Respiratory Respiratory: bilateral: CTA - Cardiovascular Rhythm: regular Heart sounds: normal: S1, S2 - Gastrointestinal General gastrointestinal: normal bowel sounds, soft - Integumentary Integumentary: decreased turgor - Neurologic Neurologic: CNII-XII intact - Musculoskeletal Musculoskeletal: generalized weakness - Labs CBC & Chem 7: 01/27/21 08:23 01/27/21 08:23 Labs: Abnormal Lab Results - Last 24 Hours (Table) 01/26/21 01/26/21 01/26/21 Range/Units 07:24 07:24 07:24 RBC 3.43 L (4.10-5.20) X 10*6/uL Hgb 10.7 L (12.0-15.0) g/dL Hct 32.8 L (37.2-46.3) % Sodium (137-145) mmol/L BUN (7-17) mg/dL Creatinine (0.52-1.04) mg/dL Glucose (74-99) mg/dL POC Glucose (mg/dL) (75-99) mg/dL Hemoglobin A1c 6.7 H (4.0-6.0) % Calcium (8.4-10.2) mg/dL Magnesium (1.6-2.3) mg/dL Alkaline Phosphatase (38-126) U/L Total Protein (6.3-8.2) g/dL Albumin (3.5-5.0) g/dL TSH 0.260 L (0.350-5.500) uIU/mL 01/26/21 01/27/21 01/27/21 Range/Units 07:24 07:32 08:23 RBC 3.79 L (4.10-5.20) X 10*6/uL Hgb (12.0-15.0) g/dL Hct (37.2-46.3) % Sodium (137-145) mmol/L BUN (7-17) mg/dL Creatinine (0.52-1.04) mg/dL Glucose (74-99) mg/dL POC Glucose (mg/dL) 112 H (75-99) mg/dL Hemoglobin A1c (4.0-6.0) % Calcium (8.4-10.2) mg/dL Magnesium 1.4 L (1.6-2.3) mg/dL Alkaline Phosphatase (38-126) U/L Total Protein (6.3-8.2) g/dL Albumin (3.5-5.0) g/dL TSH (0.350-5.500) uIU/mL 01/27/21 Range/Units 08:23 RBC (4.10-5.20) X 10*6/uL Hgb (12.0-15.0) g/dL Hct (37.2-46.3) % Sodium 134 L (137-145) mmol/L BUN 4 L (7-17) mg/dL Creatinine 0.43 L (0.52-1.04) mg/dL Glucose 120 H (74-99) mg/dL POC Glucose (mg/dL) (75-99) mg/dL Hemoglobin A1c (4.0-6.0) % Calcium 8.2 L (8.4-10.2) mg/dL Magnesium 1.2 L (1.6-2.3) mg/dL Alkaline Phosphatase 179 H (38-126) U/L Total Protein 5.4 L (6.3-8.2) g/dL Albumin 2.5 L (3.5-5.0) g/dL TSH (0.350-5.500) uIU/mL Assessment and Plan Assessment: Acute hypoxic respiratory failure covid 19 pneumonia Electrolyte imbalance with severe hypokalemia and hypomagnesemia Acute kidney injury E. coli Urinary tract infection COVID-19 infection Agitated dementia and Alzheimer's disease Mild hypernatremia Plan: Continue Decadron 6 mg daily for 10 days Obtain chest x-ray Trend renal functions however would recommend to limit the IV fluids now Antibiotics for urinary tract infection Replace magnesium and potassium
[2021-01-27] MEDS: MAGNESIUM SULFATE-D5W PMX 1 GM in DEXTROSE/WATER 1 100ML.BAG IVPB SCH ×3 (11:03→13:40)
[2021-01-27 11:16] LABS: Glucose,Whole Blood 117 mg/dL (75-99)
[2021-01-27] MEDS: DEXTROSE 5% IN WATER 1,000 ML with SODIUM BICARB (1 MEQ/ML) 50 ML IV SCH (13:41)
[2021-01-27 16:45] LABS: Glucose,Whole Blood 126 mg/dL (75-99)
--- NOTE | 2021-01-27 19:27 | PN ---
PROGRESS NOTE DATE OF SERVICE: 01/27/2021 REASON FOR FOLLOWUP: UTI and COVID-19 pneumonia. INTERVAL HISTORY: The patient is afebrile. The patient is sleepy, lethargic and is unable to provide any history. No vomiting, diarrhea or other changes reported by nursing staff. PHYSICAL EXAMINATION: On examination, blood pressure 138/78 with a pulse of 70, temperature 96.4. She is 93% on room air. GENERAL DESCRIPTION: General description is an elderly female lying in bed in no distress. RESPIRATORY SYSTEM: Unlabored breathing. Clear to auscultation anteriorly. HEART: S1, S2. Regular rate and rhythm. ABDOMEN: Soft. No tenderness. LABS: Hemoglobin is 12, white count 8.4, BUN of 4, creatinine 0.43. DIAGNOSTIC IMPRESSION AND PLAN: 1. Patient with COVID-19 pneumonia, treated conservatively. Seems to be doing well on dexamethasone, Lovenox and ascorbic acid. 2. Escherichia coli urinary tract infection, for which the patient has completed her antibiotic therapy. Will monitor the patient closely off antibiotics. MMODL / IJN: [id number] /
[2021-01-27] MEDS: QUEtiapine 25 MG TAB PO SCH (19:52)
--- NOTE | 2021-01-28 00:25 | P.PN ---
Subjective Progress Note Date: 01/26/21 Patient was seen for a follow-up. Patient is much more alert and awake. Per nursing report, she is slightly irritable, edgy at times. No new concerns. Objective - Vital Signs Vital signs: Vital Signs Temp 98.7 F 01/26/21 06:15 Pulse 91 01/26/21 06:15 Resp 16 01/26/21 06:15 BP 110/70 01/26/21 06:15 Pulse Ox 93 L 01/26/21 06:15 Intake & Output 01/25/21 01/26/21 01/26/21 18:59 06:59 18:59 Other: Voiding Method Diaper Incontinent # Voids 3 # Bowel Movements 2 3 - Exam Patient is much more alert and awake. Speech is clear. Patient does not co operate well with the exam. Patient moves all 4 extremities. Her face is symmetric, gaze is midline. - Labs CBC & Chem 7: 01/27/21 08:23 01/27/21 08:23 Labs: Abnormal Lab Results - Last 24 Hours (Table) 01/25/21 01/26/21 01/26/21 Range/Units 23:56 07:24 07:24 RBC 3.43 L (4.10-5.20) X 10*6/uL Hgb 10.7 L (12.0-15.0) g/dL Hct 32.8 L (37.2-46.3) % Sodium 135 L (137-145) mmol/L Potassium 2.9 L (3.5-5.1) mmol/L BUN 5 L (7-17) mg/dL Creatinine 0.45 L (0.52-1.04) mg/dL Glucose 110 H (74-99) mg/dL Calcium 7.7 L (8.4-10.2) mg/dL Magnesium 1.4 L (1.6-2.3) mg/dL Total Protein 4.9 L (6.3-8.2) g/dL Albumin 2.1 L (3.5-5.0) g/dL Assessment and Plan Assessment: * Altered mental status likely due to toxic metabolic encephalopathy * Status post acute kidney injury, now resolved. * Acute E. coli UTI * Covid-19 related pneumonia. Chest x-ray showing peripheral infiltrates greatest in the left lung base, Cardiomegaly. * Hyponatremia, hypokalemia * Underlying dementia. * Diabetes * Hypertension Plan: * Patient's limited examination is nonfocal. * Treatment of medical conditions as per IM and other specialties. * Hopefully her encephalopathy will improve once other medical conditions, under control. * B12 819, folate pending, TSH 0.26, mildly low. Will defer to IM to address abnormal TSH. Hemoglobin A1c 6.7. * No other workup indicated. * Neurology will sign off. Please reconsult if there is any concerns.
[2021-01-28] MEDS: DEXTROSE 5% IN WATER 1,000 ML with SODIUM BICARB (1 MEQ/ML) 50 ML IV SCH ×2 (03:08→11:37)
[2021-01-28] MEDS: LOSARTAN 50 MG TAB PO SCH (07:41)
[2021-01-28] MEDS: ZINC SULFATE 220 MG CAP PO SCH (07:41)
[2021-01-28] MEDS: ASCORBIC ACID 500 MG TAB PO SCH (07:41)
[2021-01-28] MEDS: carvediloL 12.5 MG TAB PO SCH ×2 (07:41→18:38)
[2021-01-28] MEDS: ATORVASTATIN 40 MG TAB PO SCH (07:41)
[2021-01-28] MEDS: LIDOCAINE 5% PATCH TOPICAL SCH (07:41)
[2021-01-28] MEDS: dexAMETHasone 2 MG TAB PO SCH (07:41)
[2021-01-28] MEDS: ENOXAPARIN 40 MG/0.4 ML SYRINGE SQ SCH (09:09)
--- NOTE | 2021-01-28 09:11 | P.PN ---
Subjective Progress Note Date: 01/28/21 Principal diagnosis: COVID-19 pneumonia Agitated dementia/delirium Acute kidney injury Urinary tract infection COVID-19 infection Mild hypernatremia 01/28/2021, overall patient remains stable, patient remains on dexamethasone and antibiotics for E. coli infection today more calm and less agitation seen 01/25/2021, patient seen eval reexamined during the rounds on room air now intermittently confused and agitated overall no significant changes seen, patient seen eval for hospice and comfort care 01/24/2021, patient seen eval examined awake but remains confused intermittently agitated, neurology have been consulted for worsening of agitated behavior and dementia, chest x-ray showed interstitial patchy infiltrate consistent with over pneumonia oxygen saturation however have been stable on 2 L into mid , patient remains on Decadron appeared to be tolerating well, also noted hypokalemia hypomagnesemia on replacement protocol, repeat labs are pending 01/23/2021, patient seen eval examined during the rounds labs reviewed medications reviewed, patient has been intermittently more hypoxic overnight, oxygen saturation requiring 2 L oxygen, currently patient remains afebrile, oxygen saturation is 91%. Her which is down to 2 L now, plan is to add Decadron and obtain a chest x-ray, patient remains on bicarb drip per recommendation of nephrology 01/22/2021, patient seen eval examined resting now less agitated, patient had hard time sleeping last night was agitated, remains afebrile with stable hemodynamics saturation is 95% room air, labs from today reviewed urine culture came back for positive for E. coli 01/21/2021, patient seen eval examined during the rounds labs reviewed medications reviewed care plan discussed, respiratory status remains stable, patient remains on room air intermittent episodes of anxiety and agitation is seen, sitter at bedside, renal function significantly improved, elevated d-dimer likely related to inflammatory process due to COVID-19 infection, patient remains afebrile oxygen saturation is 96% on room air visible signs of respiratory distress seen This is a 81-year-old with advanced dementia came into emergency department in transfer from [facility] it appears that patient has been found to have COVID-19 pneumonia testing positive for repeat testing in the hospital are pending, if was a week ago she is status post monoclonal antibody infusion on January 15, hemodynamic status stable she's on room air denies any chest pain or shortness of breath, staff in process of obtaining the records, her past medical history is significant for dyslipidemia hypertension hypertensive cardiovascular disease, COPD, there is a history of fall about 2 weeks ago since then she is having some back pain however currently denying it, review of the labs are reviewed normal CBC, sodium is 148, BUN/creatinine was 93/2.7 came down to 67 on 0.47 with gentle rehydration, urine is cloudy with large leukocyte esterase and nitrates many WBC clumps and urine bacteria, culture is pending, computed tomography scan of the pelvis and abdomen significant for dilated common bile duct, adrenal gland lesion 2.4 cm, calculus in the right kidney, no hydronephrosis seen, distal thoracic aneurysm and T12 compression fracture, chest x-rays not done, patient remains on Zithromax and Rocephin, with gentle rehydration and IV fluids 75 mL an hour Objective - Vital Signs Vital signs: Vital Signs Temp 97.6 F 01/28/21 05:54 Pulse 75 01/28/21 05:54 Resp 16 01/28/21 05:54 BP 146/84 01/28/21 05:54 Pulse Ox 93 L 01/28/21 05:54 Intake & Output 01/27/21 01/28/21 01/28/21 18:59 06:59 18:59 Output Total 500 Balance -500 Output: Urine 500 Other: Voiding Method Diaper Diaper # Voids 3 # Bowel Movements 1 1 - Exam Constitutional General appearance: average body habitus, cooperative, disheveled - EENT Eyes: PERRLA Ears: bilateral: normal - Neck Neck: normal ROM Carotids: right: upstroke normal Thyroid: bilateral: normal size - Respiratory Respiratory: bilateral: CTA - Cardiovascular Rhythm: regular Heart sounds: normal: S1, S2 - Gastrointestinal General gastrointestinal: normal bowel sounds, soft - Integumentary Integumentary: decreased turgor - Neurologic Neurologic: CNII-XII intact - Musculoskeletal Musculoskeletal: generalized weakness - Labs CBC & Chem 7: 01/27/21 08:23 01/27/21 08:23 Labs: Abnormal Lab Results - Last 24 Hours (Table) 01/27/21 01/27/21 Range/Units 11:08 16:43 POC Glucose (mg/dL) 117 H 126 H (75-99) mg/dL Assessment and Plan Assessment: Acute hypoxic respiratory failure covid 19 pneumonia Electrolyte imbalance with severe hypokalemia and hypomagnesemia Acute kidney injury E. coli Urinary tract infection COVID-19 infection Agitated dementia and Alzheimer's disease Mild hypernatremia Plan: Continue Decadron 6 mg daily for 10 days Obtain chest x-ray Trend renal functions however would recommend to limit the IV fluids now Antibiotics for urinary tract infection Replace magnesium and potassium
[2021-01-28] MEDS ORDERED: ZIPRASIDONE 20 MG VIAL IM PRN (10:37)
--- NOTE | 2021-01-28 11:07 | PN ---
PROGRESS NOTE DATE OF SERVICE: 01/27/2021 85-year-old white female, having no chest pain, shortness of breath, no lightheadedness, dizziness or syncope. She is very confused, unable to eat or drink. She is having metabolic encephalopathy. She is saturating 95 or 93%. Blood pressure is 146/84, temperature 97.6, pulse 75, respiratory 16 to 18. ASSESSMENT: 1. Covid encephalopathy. 2. Covid pneumonia. 3. Dementia with worsening behavioral changes possibly give her a shot of some IV Geodon to see if it improves her confusion as a trial as she is does not appear to be getting better. She has refused oral medications. MMODL / IJN: [id number] /
--- NOTE | 2021-01-28 18:40 | PN ---
PROGRESS NOTE DATE OF SERVICE: 01/28/2021. REASON FOR FOLLOW UP: 1. Covid 19 infection. 2. UTI. INTERVAL HISTORY: Patient is afebrile. The patient remains to be sleepy, lethargic and was not unable to provide any history. No vomiting, diarrhea or any other changes reported by nursing staff. PHYSICAL EXAMINATION: Blood pressure 131/58 with a pulse of 68, temperature 98.3. She is 93% on room air. General description is an elderly female lying in bed in no distress. Respiratory system: Unlabored breathing. Clear to auscultation anteriorly. Heart S1, S2. Regular rate and rhythm. Abdomen: Soft, no tenderness. LABS: No new labs have been obtained today. DIAGNOSTIC IMPRESSION AND PLAN: 1. Patient with COVID-19 infection that has been treated. Supported treatment and is currently on room air. No distress. 2. Patient with urinary tract infection that has been adequately treated. Possible hospice which may be appropriate for her. MMODL / IJN: [id number] /
[2021-01-28] MEDS: QUEtiapine 25 MG TAB PO SCH ×2 (20:16→20:22)
--- NOTE | 2021-01-29 04:55 | PN ---
PROGRESS NOTE 85-year-old white female has severe metabolic encephalopathy secondary to Covid. We are going to try to give her today since she is not taking her pills by mouth, we are going to try to give her Geodon shots twice a day to try to improve her encephalopathy which could be made worse by dementia and Covid with behavioral changes. She is 97 on room air, respiratory 18-16, temp 98.4, respiratory 60s to 80s. She is thin, cachectic, not eating or drinking. Cardiovascular: S1, S2. Lungs scattered rhonchi and wheeze. Hematology negative Homans. Psych: Fair mood and affect. ASSESSMENT: Metabolic encephalopathy secondary to Covid causing worsening dementia with delirium and behavioral changes. She may be going into hospice this week. Palliative hospice. We are going to try to give her Geodon to counteract her dementia with delirium and psychotic behavior and possibly she will start eating. Prognosis guarded. MMODL / IJN: [id number] /
[2021-01-29] MEDS: LIDOCAINE 5% PATCH TOPICAL SCH (08:24)
[2021-01-29] MEDS: dexAMETHasone 2 MG TAB PO SCH (08:24)
[2021-01-29] MEDS: LOSARTAN 50 MG TAB PO SCH (08:24)
[2021-01-29] MEDS: carvediloL 12.5 MG TAB PO SCH ×2 (08:24→18:15)
[2021-01-29] MEDS: ATORVASTATIN 40 MG TAB PO SCH (08:24)
[2021-01-29] MEDS: ASCORBIC ACID 500 MG TAB PO SCH (08:24)
[2021-01-29] MEDS: ZINC SULFATE 220 MG CAP PO SCH (08:24)
[2021-01-29] MEDS: DEXTROSE 5% IN WATER 1,000 ML with SODIUM BICARB (1 MEQ/ML) 50 ML IV SCH (08:27)
[2021-01-29] MEDS: ENOXAPARIN 40 MG/0.4 ML SYRINGE SQ SCH (08:27)
--- NOTE | 2021-01-29 09:13 | P.PN ---
Subjective Progress Note Date: 01/29/21 Principal diagnosis: COVID-19 pneumonia Agitated dementia/delirium Acute kidney injury Urinary tract infection COVID-19 infection Mild hypernatremia 01/29/2021, overall no significant change has been noted, patient remains on no regular undergoing therapy for COVID-19 infection, intermittently as dictated but severity has improved, 01/28/2021, overall patient remains stable, patient remains on dexamethasone and antibiotics for E. coli infection today more calm and less agitation seen 01/25/2021, patient seen eval reexamined during the rounds on room air now intermittently confused and agitated overall no significant changes seen, patient seen eval for hospice and comfort care 01/24/2021, patient seen eval examined awake but remains confused intermittently agitated, neurology have been consulted for worsening of agitated behavior and dementia, chest x-ray showed interstitial patchy infiltrate consistent with over pneumonia oxygen saturation however have been stable on 2 L into mid 90s, patient remains on Decadron appeared to be tolerating well, also noted hypokalemia hypomagnesemia on replacement protocol, repeat labs are pending 01/23/2021, patient seen eval examined during the rounds labs reviewed medications reviewed, patient has been intermittently more hypoxic overnight, oxygen saturation requiring 2 L oxygen, currently patient remains afebrile, oxygen saturation is 91%. Her which is down to 2 L now, plan is to add Decadron and obtain a chest x-ray, patient remains on bicarb drip per recommendation of nephrology 01/22/2021, patient seen eval examined resting now less agitated, patient had hard time sleeping last night was agitated, remains afebrile with stable hemodynamics saturation is 95% room air, labs from today reviewed urine culture came back for positive for E. coli 01/21/2021, patient seen eval examined during the rounds labs reviewed medications reviewed care plan discussed, respiratory status remains stable, patient remains on room air intermittent episodes of anxiety and agitation is seen, sitter at bedside, renal function significantly improved, elevated d-dimer likely related to inflammatory process due to COVID-19 infection, patient remains afebrile oxygen saturation is 96% on room air visible signs of respira tory distress seen This is a 81-year-old with advanced dementia came into emergency department in [facility] from [place] it appears that patient has been found to have COVID- 19 pneumonia testing positive for repeat testing in the hospital are pending, if was a week ago she is status post monoclonal antibody infusion on January 15, hemodynamic status stable she's on room air denies any chest pain or shortness of breath, staff in process of obtaining the records, her past medical history is significant for dyslipidemia hypertension hypertensive cardiovascular disease, COPD, there is a history of fall about 2 weeks ago since then she is having some back pain however currently denying it, review of the labs are reviewed normal CBC, sodium is 148, BUN/creatinine was 93/2.7 came down to 67 on 0.47 with gentle rehydration, urine is cloudy with large leukocyte esterase and nitrates many WBC clumps and urine bacteria, culture is pending, computed tomography scan of the pelvis and abdomen significant for dilated common bile duct, adrenal gland lesion 2.4 cm, calculus in the right kidney, no hydronephrosis seen, distal thoracic aneurysm and T12 compression fracture, chest x-rays not done, patient remains on Zithromax and Rocephin, with gentle rehydration and IV fluids 75 mL an hour Objective - Vital Signs Vital signs: Vital Signs Temp 98.7 F 01/29/21 01:18 Pulse 98 01/28/21 19:15 Resp 14 01/29/21 01:18 BP 123/49 01/29/21 01:18 Pulse Ox 93 L 01/29/21 01:18 Intake & Output 01/28/21 01/29/21 01/29/21 18:59 06:59 18:59 Output Total 250 Balance -250 Output: Urine 250 Other: Voiding Method Diaper External Catheter - Labs CBC & Chem 7: 01/27/21 08:23 01/27/21 08:23 Labs: Abnormal Lab Results - Last 24 Hours (Table) 01/26/21 Range/Units 07:24 Free T4 2.00 H (0.80-1.80) ng/dL Assessment and Plan Assessment: Acute hypoxic respiratory failure covid 19 pneumonia Electrolyte imbalance with severe hypokalemia and hypomagnesemia Acute kidney injury E. coli Urinary tract infection COVID-19 infection Agitated dementia and Alzheimer's disease Mild hypernatremia Plan: Continue Decadron 6 mg daily for 10 days Obtain chest x-ray Trend renal functions however would recommend to limit the IV fluids now Antibiotics for urinary tract infection Replace magnesium and potassium Time with Patient: Greater than 30
--- NOTE | 2021-01-29 13:34 | PN ---
PROGRESS NOTE DATE OF SERVICE: 01/29/2021 REASON FOR FOLLOWUP: Covid-19 infection and UTI. INTERVAL HISTORY: The patient is afebrile. The patient is currently breathing comfortably on room air. The patient is awake; however, pleasantly confused. No vomiting or diarrhea reported by the nursing staff. PHYSICAL EXAMINATION: On examination, blood pressure 123/49 with a pulse of , temperature 98.7. She is 93% on room air. GENERAL DESCRIPTION: General description is an elderly female lying in bed in no distress. RESPIRATORY SYSTEM: Unlabored breathing. Clear to auscultation anteriorly. HEART: S1, S2. Regular rate and rhythm. ABDOMEN: Soft. No tenderness. LABS: No new labs have been obtained today. DIAGNOSTIC IMPRESSION AND PLAN: 1. Patient with an Escherichia coli urinary tract infection that has been adequately treated. No need for antibiotic on discharge. 2. Patient with a Covid-19 infection that has been treated symptomatically, on dexamethasone, Lovenox, zinc and ascorbic acid. Continue supportive care. MMODL / IJN: [id number] /
[2021-01-29 15:13] VITALS: BP 114/58; PULSE 70; RESP 18; TEMP 98.2
[2021-01-29] MEDS: LORazepam 2 MG/ML INJ IV PRN (18:22)
== END 2021-01-29 18:44 | disposition hospice, home (50) | DRG 177 ==
LOC: EC 16:34 → 4SSUR 18:57
PROVIDERS: ADMIT Family Medicine; ATTEND Family Medicine
PROC: 3E0333Z Introduction of Anti-inflammatory into Peripheral Vein, Percutaneous Approach (ICD-10-PCS; principal; 2021-01-19)
DX: U07.1 COVID-19 (principal); J12.82 Pneumonia due to coronavirus disease 2019; J96.01 Acute respiratory failure with hypoxia; G93.41 Metabolic encephalopathy; N17.9 Acute kidney failure, unspecified; N39.0 Urinary tract infection, site not specified; M48.54XA Collapsed vertebra, not elsewhere classified, thoracic region, initial encounter for fracture; R64 Cachexia; E87.0 Hyperosmolality and hypernatremia; F02.81 Dementia in other diseases classified elsewhere, unspecified severity, with behavioral disturbance; J44.0 Chronic obstructive pulmonary disease with (acute) lower respiratory infection; F05 Delirium due to known physiological condition; E87.1 Hypo-osmolality and hyponatremia; E11.9 Type 2 diabetes mellitus without complications; J44.9 Chronic obstructive pulmonary disease, unspecified; E78.5 Hyperlipidemia, unspecified; Z87.891 Personal history of nicotine dependence; F32.9 Major depressive disorder, single episode, unspecified; F41.9 Anxiety disorder, unspecified; N20.0 Calculus of kidney; E86.0 Dehydration; Z51.5 Encounter for palliative care; I11.9 Hypertensive heart disease without heart failure; I71.2 Thoracic aortic aneurysm, without rupture; K52.9 Noninfective gastroenteritis and colitis, unspecified; B96.20 Unspecified Escherichia coli [E. coli] as the cause of diseases classified elsewhere; G30.1 Alzheimer's disease with late onset; E83.42 Hypomagnesemia; E87.6 Hypokalemia; Z95.0 Presence of cardiac pacemaker; Z79.899 Other long term (current) drug therapy; K83.8 Other specified diseases of biliary tract; M19.91 Primary osteoarthritis, unspecified site; Z88.2 Allergy status to sulfonamides; Z98.49 Cataract extraction status, unspecified eye; Z87.01 Personal history of pneumonia (recurrent)
CPT/HCPCS: 36415; 71045; 74176; 76700; 80048; 80053; 81001; 82150; 82607; 82746; 83036; 83615; 83690; 83735; 84132; 84145; 84439; 84443; 85025; 85379; 86140; 87077; 87086; 87186; 87635; 99285